=== PATIENT | male | born 1990 | race Caucasian/White ===

== ENCOUNTER 2019-09-07 21:06 | Inpatient (IN) | payer SELFPAY ==
[2019-09-07 21:11] VITALS: BP 129/81; PULSE 99; RESP 16; TEMP 36.7; O2SAT 97; BMI 23.0
--- NOTE | 2019-09-07 21:36 | ED_ITS ---
Entered by Citlali Moe, acting as scribe for Sep 07, 2019 21:06 HPI - Psych General: Chief Complaint: Psychiatric Symptoms Stated Complaint: si Time Seen by Provider: 09/07/19 21:16 Source: patient Mode of arrival: ambulatory Limitations: no limitations History of Present Illness: HPI Narrative: 29 yo m came to the er for SI thoughts. 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 Pt states that he has been having some si thougths. Pt said that he has no reason to live, he has lost all of his family and friends. Pt said that he has been wanting to kill himself for about 6 months but he does not have a plan at this time.cora TAPIA complaint: suicidal ideation Onset (ago): day(s) (today) Duration: constant History of same: Yes Relieving factors: none Exacerbating factors: none Context: significant life stressor Associated psychiatric symptoms: suicidal ideation Associated symptoms: Reports suicidal ideation Treatments prior to arrival: none If self harm: admits thoughts of self harm Details of plan: pt does not have a plan at this time. Review of Systems General: Reports: other (negative unless marked) Const: Denies: fever, chills, body aches or change in appetite Eyes: Denies: blurry vision or eye discomfort ENMT: Denies: throat pain or dental pain Card: Denies: chest pain Resp: Denies: shortness of breath GI: Denies: abdominal pain, nausea, vomiting or diarrhea : Denies: painful urination Musc: Denies: neck pain or back pain Skin/Breast: Denies: rash Neuro: Denies: headache Psych: Reports: suicidal ideation Danial/Lymph: Denies: easy bruising All/Imm: Denies: hives PFSH ED PFSH: Social History Smoking and tobacco status: current every day smoker Physical Exam Const: COMMON NORMALS: no apparent distress, oriented x3 and healthy appearing HENMT: COMMON NORMALS: normocephalic and head/scalp atraumatic HEAD & SCALP: normocephalic and atraumatic Eye: COMMON NORMALS: PERRL and EOMs intact bilaterally PUPIL: Yes PERRL Neck/C-Spine: COMMON NORMALS: full ROM and supple Chest: COMMONS NORMALS: inspection of chest normal and palpation of chest normal Resp: COMMON NORMALS: normal respiratory effort, no retractions, no use of accessory muscles and clear to auscultation bilaterally AUSCULTATION: clear to auscultation bilaterally Cardio: COMMON NORMALS: regular rate, regular rhythm and no murmurs RATE: regular rate RHYTHM: regular rhythm GI: COMMON NORMALS: normal to inspection, nondistended, normoactive bowel sounds, soft to palpation, non-tender and no masses PALPATION: Yes soft Extremity: COMMON NORMALS: normal to inspection and full ROM Neuro: COMMON NORMALS: oriented x3, moves all extremities and no focal motor deficits Psych: COMMON NORMALS: mental status grossly normal and cooperative THOUGHT CONTENT: Yes suicidality Skin: COMMON NORMALS: no rashes or lesions noted and no wounds GENERAL SKIN EXAM: no rashes or lesions noted MDM - Psych MDM Narrative: Medical decision making narrative: Patient presents here with suicidal ideation. Patient is voluntarily wanting to get help. I spoke to psychiatrist and will admit at this time. Patient has been stable while here. Coding Level of Care Code ED Beater Out for Chg Fwd The documentation recorded by the Abhi tobias Stephanie Lyn, accurately reflects the service I personally performed and the decisions made by me, Srinath Peralta MD Sep 07, 2019 21:06
--- NOTE | 2019-09-07 21:53 | PC.NURSE ---
PATIENT STATES HE STARTED HAVING THOUGHTS OF SUICIDE TODAY AND THAT HE HAS A HISTORY OF THE SAME TYPE OF THOUGHTS. PATIENT STATES HE DOES NOT HAVE A PLAN TO HURT HIMSELF. PATIENT STATES HE CAME IN OF HIS OWN FREE WILL AND STATES THAT HIS MOTHER HELPED TALK HIM INTO COMING IN. PATIENT STATES HE WANTS SOME HELP. PATIENT STATES HE HAS NOT DONE ANY METHAMPHETAMINES SINCE THURSDAY.
[2019-09-07 22:33] LABS: Basophils # 0.1 10^3/uL (0.0-0.1); Basophils % 0.6 %; Eosinophils # 0.2 10^3/uL (0.0-0.8); Eosinophils % 2.9 %; Hematocrit 41.4 % (42.0-52.0); Hemoglobin 12.9 g/dL (11.7-16.6); Lymphocytes # 2.8 10^3/uL (0.8-4.8); Lymphocytes % 34.8 %; Mean Corpuscular HGB Conc 31.2 g/dL (30.0-36.0); Mean Corpuscular Hemoglobin 27.7 pg (28.0-34.0); Mean Corpuscular Volume 88.8 fL (80-94); Mean Platelet Volume 9.8 fL (7.4-10.4); Monocytes # 0.6 10^3/uL (0.2-0.9); Monocytes % 6.9 %; Neutrophils # 4.3 10^3/uL (1.8-7.7); Neutrophils % 54.3 %; Nucleated Red Blood Cells % 0 %; Platelet Count 291 10^3/cmm (130-400); Red Blood Count 4.66 10^6/uL (4.1-5.3); Red Cell Distribution Width 12.4 % (12.1-15.1); White Blood Count 7.9 10^3/uL (4.0-10.0)
[2019-09-07 22:43] VITALS: PULSE 86; RESP 18; O2SAT 100
[2019-09-07 22:49] VITALS: BP 122/68; PULSE 87; RESP 18; O2SAT 100
[2019-09-07 22:49] LABS: Alanine Aminotransferase 11 U/L (0-41); Albumin Level 3.9 g/dL (3.5-5.2); Alkaline Phosphatase 68 IU/L (40-130); Anion Gap 10.1 (5-19); Aspartate Amino Transferase 14 U/L (0-40); Blood Urea Nitrogen 9 mg/dL (6-20); Calcium 9.5 mg/dL (8.5-10.5); Carbon Dioxide 33 mmol/L (22-29); Chloride 103 mmol/L (98-107); Globulin 2.8 g/dL (1.3-4.6); Glomerular Filtration Rate 131.5 mL/min (90-130); Glucose 92 mg/dL (65-115); Osmolality Calculated 290 mOsm/kg (285-295); Potassium 4.1 mmol/L (3.5-5.1); Sodium 142 mmol/L (136-145); Total Bilirubin 0.3 mg/dL (0.15-1.2); Total Protein 6.7 g/dL (6.6-8.7)
[2019-09-07 22:50] LABS: Acetaminophen < 5.0 ug/mL (10-30); Alcohol Level < 10 mg/dL (0-10); Salicylate < 0.3 mg/dL (3-10)
[2019-09-07 22:56] LABS: Cocaine Screen Urine Negative (Negative); PCP Screen Urine Negative (Negative); THC Screen Urine Positive (Negative)
[2019-09-07 22:57] LABS: Amphetamines Screen Urine Positive (Negative); Barbiturates Screen Urine Negative (Negative); Benzodiazepines Screen Urine Negative (Negative); Opiate Screen Urine Negative (Negative)
--- NOTE | 2019-09-07 23:15 | PC.NURSE ---
Pt arrived to unit via w/c at 2305. pt in paper scrubs as per protocol.
--- NOTE | 2019-09-07 23:30 | PC.NURSE ---
pt has no scheduled meds at this time.
[2019-09-07 23:34] VITALS: BP 113/75; PULSE 83; RESP 22; TEMP 36.5; O2SAT 98
[2019-09-08 06:00] VITALS: BP 107/68; PULSE 84; RESP 18; TEMP 36.8; O2SAT 95
--- NOTE | 2019-09-08 10:56 | P.HP_ITS ---
Providers/Chief Complaint Admitting Physician: Leeroy Tompkins MD Chief Complaint: si HPI NPU History of Present Illness Chief complaint: I have depression and an anxiety disorder. History of present illness:Jeremy Black is a 29 year old male who presented to the emergency room reporting multiple psychosocial stressors including recent incarceration and homelessness and reporting suicidal ideation. Since his last admission, he was living in [place] and working in [employer]. However, he was picked up by police on outstanding warrants and transported here. He was released three days ago. He is not a reliable informant with regard to symptoms of depression other than chief complaint above. ER Physician note: 29 yo m came to the er for SI thoughts. 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 Pt states that he has been having some si thougths. Pt said that he has no reason to live, he has lost all of his family and friends. Pt said that he has been wanting to kill himself for about 6 months but he does not have a plan at this time. [facility] historyt From admission of Apr 19, 2019 thru Apr 25, 2019 Discharge Diagnoses: Amphetamine abuse disorder Amphetamine intoxication Narcissistic personality disorder Chief Complaint: you Speak with the devil, you better tell him what he wants to hear. Life just sucks. HPI: Jeremy Black is a 29-year-old man who is admitted to the psychiatric unit for the second time in 3 years with a chief problem of methamphetamine abuse. On interview, he is irritable and hostile and unwilling to provide any significant information. He says that he has been using methamphetamine daily. He will not estimate how much he has been using. He will not estimate how long he has been using continuously. When asked about symptoms of depression, he replies that of course I'm depressed. I have nothing. He rambles on and starts talking about not having a or children or anything that would provide him any source of enjoyment. He specifically denied suicidal or homicidal ideation. However he passively admitted that he feels hopeless and overwhelmed and questions whether it is reasonable for him to go on living. He refused to respond when asked about specific symptoms of depression. He denied having auditory or visual hallucinations. However he clearly was not understanding what he was being told in the information part of this interview. Specifically, we discussed the fact that he is currently on a 96 hour involuntary commitment. He became angry over the fact that the 96 hours with actually take 6 days to resolve because weekends do not count. Following the explanation, it was explained to him that if he demonstrated to physician and staff that he was not an imminent risk to himself or others, he demonstrated that was able to effectively plan for events after discharge that would indicate keep him safe and address his issues, that the 96 hour involuntary commitment could be canceled. Less than a minute later, he stated that he did not understand why he should be talking to me since he was going to be here until next week anyway. He didn't faint as if he was nauseous and going to throw up (he did not). He then went back to his room and refused to provide further information. Emergency room note: Chief Complaint: Pt states that he wants to kill himself because no one cares about him. Pt is withdrawn and will not say anything else. Pt wants to come in to get some help.). Social history: homeless; no social support Legal history: In the past year he's been rested for Her in with a motor vehicle and felony possession of a controlled substance. Past medical history: See emergency room notes for full detail Mental Status Exam: The patient is alert interpersonally engaged male appearing approximately his stated age. His head is almost shaved bald. He is muscular and well-developed. There are no tics or tremors. He is interpersonally engaged but gives no eye contact. Attitude is not particularly engaged but not dismissive as in the past. Appearance: hygiene is fair; no gross neurological deficits., gait is unremarkable; AIMS=0 Speech: Speech is of normal rate and rhythm and easily understood. Thought processes: Thought processes are abstract. Judgment is adequate for safety. Associations: intact Psychotic processes: He denied the presence of auditory or visual hallucinations. Judgment: Insight is fair. Problem solving skills are adequate for safety. Orientation: The patient is oriented to person, place time and situation. Memory: no deficits noted in immediate, intermediate, or remote spheres. Attention: The patient is alert and interpersonally engaged. Language: Verbalizations are coherent. Fund of knowledge: Fund of knowledge is adequate. Affect/Mood: Affect is sad with a depressed mood. no suicidal ideation without intent or plan. Affective range flat. Psychosis: no indication of psychosis other than occassional cognitve distortion. Reality testing is intact. Diagnoses: Methamphetamine abuse disorder Treatment plan: Due to the psychiatric conditions and treatment listed in the Assessment and Plan - the patient requires continued hospitalization. Will provide a safe and therapeutic environment for patient.. Will continue inpatient treatment to allow for medication adjustment and monitoring. Will continue q15 min safety checks. This situation's dominant force is his homelessness and lack of social support. His methamphetamine use is also a barrier to better mental health. We agreed to start Paxil 10 mg at bedtime and consider naltrexone for methamphetamine craving if he finds placement in a treatment program. Monitor patient's mood, sleep, appetite, and behavior closely. Encourage patient to participate in individual and group therapeutic sessions on the [place]. Estimated length of stay 5 days The expected benefits and potential side effects of patient's psychiatric medications were discussed with the patient. The patient understands and consents to treatment.CRITERIA FOR DISCHARGE: stable on medications and not an imminent risk to self or others. Meds NPU Home Medications Medication Instructions Recorded Confirmed Type No Known Home Medications 09/07/19 09/07/19 History Allergies Allergy/AdvReac Type Severity Reaction Status Date / Time escitalopram [From Lexapro] Allergy ALGY-Hives Verified 09/07/19 21:23 menthol [From Icy Hot] Allergy ALGY-Hives Verified 09/07/19 21:23 methyl salicylate Allergy ALGY-Hives Verified 09/07/19 21:23 [From Icy Hot] PFSH NPU PFSH: Social History Smoking and tobacco status: current every day smoker Vitals/I&O/Wt Last Vital Signs Temp 98.3 F 09/08/19 06:00 Pulse 84 09/08/19 06:00 Resp 18 09/08/19 06:00 BP 107/68 09/08/19 06:00 Pulse Ox 95 09/08/19 06:00 Weight last 48 hrs Weight 77.111 kg Data NPU : 09/07/19 22:09 09/07/19 22:09 Attestations NPU Medical Necessity Statement*: Pt will remain in the hospital for another 4-5 nights until he can find solutions to his homelessness or placement and efficacy of depressioin treatment. Coding Level of Care Code Acute Pit Supervisor for Opal Lara
[2019-09-08 14:00] VITALS: BP 116/75; PULSE 103; RESP 18; TEMP 36.5; O2SAT 97
[2019-09-08] MEDS: OLANZapine ODT 5 MG TABLET PO (21:10)
[2019-09-08] MEDS: PARoxetine 20 mg Tablet 10 MG PO (21:10)
[2019-09-08] MEDS: doxepin 25 mg Capsule PO (21:11)
[2019-09-08] MEDS: trazodone 50 mg Tablet PO (21:11)
[2019-09-08 21:26] VITALS: BP 116/76; PULSE 83; RESP 23; TEMP 36.6; O2SAT 99
[2019-09-09 06:00] VITALS: BP 106/72; PULSE 69; RESP 18; TEMP 36.7; O2SAT 94
[2019-09-09 13:55] VITALS: BP 106/66; PULSE 83; RESP 18; TEMP 36.8; O2SAT 97
--- NOTE | 2019-09-09 17:46 | P.PN_ITS ---
Vitals/I&O/Wt Last Vital Signs Temp 98.3 F 09/09/19 13:55 Pulse 83 09/09/19 13:55 Resp 18 09/09/19 13:55 BP 106/66 09/09/19 13:55 Pulse Ox 97 09/09/19 13:55 Weight last 48 hrs Weight 77.111 kg Data NPU : 09/07/19 22:09 09/07/19 22:09 A&P Additional A&P Information Subjective: Pt compains that he new meds caused him to have diarrhea all day. Mental Status Exam: The patient is alert interpersonally engaged male appearing approximately his stated age. His head is almost shaved bald. He is muscular and well-developed. There are no tics or tremors. He is interpersonally engaged but gives no eye contact. Attitude is not particularly engaged but not dismissive as in the past. Appearance: hygiene is fair; no gross neurological deficits., gait is unremarkable; AIMS=0 Speech: Speech is of normal rate and rhythm and easily understood. Thought processes: Thought processes are abstract. Judgment is adequate for safety. Associations: intact Psychotic processes: He denied the presence of auditory or visual hallucinations. Judgment: Insight is fair. Problem solving skills are adequate for safety. Orientation: The patient is oriented to person, place time and situation. Memory: no deficits noted in immediate, intermediate, or remote spheres. Attention: The patient is alert and interpersonally engaged. Language: Verbalizations are coherent. Fund of knowledge: Fund of knowledge is adequate. Affect/Mood: Affect is sad with a depressed mood. no suicidal ideation without intent or plan. Affective range flat. Psychosis: no indication of psychosis other than occassional cognitve distor tion. Reality testing is intact. Diagnoses: Methamphetamine abuse disorder Treatment plan: Due to the psychiatric conditions and treatment listed in the Assessment and Plan - the patient requires continued hospitalization. Will provide a safe and therapeutic environment for patient.. Will continue inpatient treatment to allow for medication adjustment and monitoring. Will continue q15 min safety checks. HD#2: This situation's dominant force is his homelessness and lack of social support. His methamphetamine use is also a barrier to better mental health. We agreed to start Paxil 10 mg at bedtime and consider naltrexone for methamphetamine craving if he finds placement in a treatment program. HD#3: replace PAxil with Celexa 20 mg daily Attestations NPU Medical Necessity Statement*: Patient will remain in hospital antoher 4-5 nights for medication toelrance and efficacy Coding Level of Care Code Acute Ornamental Metal Worker Helper for Opal Lara
[2019-09-09] MEDS: trazodone 50 mg Tablet PO (20:54)
[2019-09-09] MEDS: doxepin 25 mg Capsule PO (20:54)
[2019-09-09 22:00] VITALS: BP 104/67; PULSE 75; RESP 16; TEMP 36.8; O2SAT 96
[2019-09-10 06:00] VITALS: BP 109/74; PULSE 63; RESP 17; TEMP 36.6; O2SAT 96
--- NOTE | 2019-09-10 08:49 | PM.NPN ---
Mental Status Exam Cognition: Level of Consciousness: Awake, Alert, Appropriate and Follows Commands Patient Cognition Impaired: No Ability to Follow Directions: Excellent Patient Orientation (long list): Person, Place and Time Comprehension Ability: No Impairment Hallucination Type: None Thought Process: Appropriate Affect: Affect Description: Appropriate and Calm Depressive Symptoms: Hopelessness, Loss of Energy and Recurrent Thoughts of or Suicide Behavior: Patient Behavior: Appropriate and Cooperative Speech Pattern: Appropriate and Clear Vitals/I&O/Wt Last Vital Signs Temp 97.8 F 09/10/19 06:00 Pulse 63 09/10/19 06:00 Resp 17 09/10/19 06:00 BP 109/74 09/10/19 06:00 Pulse Ox 96 09/10/19 06:00 Data NPU : 09/07/19 22:09 09/07/19 22:09 A&P Additional A&P Information Subjective: Pt is free of gastrointestinal problems after stoping Paxil. Sleep was good. No changes requested. Awaiting placement options. Mental Status Exam: The patient is encountered alying bed early in day. He is alert interpersonally engaged male appearing approximately his stated age. Appearance: hygiene is fair; no gross neurological deficits., gait is unremarkable; AIMS=0 Speech: Speech is of normal rate and rhythm and easily understood. Thought processes: Thought processes are abstract. Judgment is adequate for safety. Associations: intact Psychotic processes: He denied the presence of auditory or visual hallucinations. Judgment: Insight is fair. Problem solving skills are adequate for safety. Orientation: The patient is oriented to person, place time and situation. Memory: no deficits noted in immediate, intermediate, or remote spheres. Attention: The patient is alert and interpersonally engaged. Language: Verbalizations are coherent. Fund of knowledge: Fund of knowledge is adequate. Affect/Mood: Affect is sad with a depressed mood. no suicidal ideation without intent or plan. Affective range flat. Psychosis: no indication of psychosis other than occassional cognitve distortion. Reality testing is intact. Diagnoses: Methamphetamine abuse disorder Treatment plan: Due to the psychiatric conditions and treatment listed in the Assessment and Plan - the patient requires continued hospitalization. Will provide a safe and therapeutic environment for patient.. Will continue inpatient treatment to allow for medication adjustment and monitoring. Will continue q15 min safety checks. HD#2: This situation's dominant force is his homelessness and lack of social support. His methamphetamine use is also a barrier to better mental health. We agreed to start Paxil 10 mg at bedtime and consider naltrexone for methamphetamine craving if he finds placement in a treatment program. HD#3:replace PAxil with Celexa 20 mg daily HD#4: continue Celexa 20 mg daily day #2 and doxepin 50 mg at bedtime Attestations NPU Medical Necessity Statement*: Pt to remain in hospital another 3-4 nights for assessment of medication tolerance and efficacy. Coding Level of Care Code Acute Neurosurgical Nurse Practitioner for Opal Lara
[2019-09-10] MEDS: citalopram 20 mg Tablet PO (09:00)
[2019-09-10 14:00] VITALS: BP 123/89; PULSE 18; RESP 17
[2019-09-10] MEDS: doxepin 25 mg Capsule PO (20:31)
[2019-09-10] MEDS: OLANZapine ODT 5 MG TABLET PO (21:34)
[2019-09-10] MEDS: hyDROXYzine 25 mg Capsule PO (21:35)
[2019-09-10 22:00] VITALS: BP 117/80; PULSE 88; RESP 17; TEMP 36.4; O2SAT 97
--- NOTE | 2019-09-10 23:28 | PC.NURSE ---
pt came to desk early in shift and very angry verbalizing that he did not get all of his meds. Had another RN verify order. Pt remained at desk and argued. After multiple attempts to explain to pt he continued to argue. Dr. Tompkins notified after pt said he wanted to leave AMA. When took form to pt he decided he did not want to leave. Medicated with Vistaril 25mgs po and Zyprxa Zydid 5 ngs odt. Pt returned to his room and fell asleep shortly after. Respirations even and unlabored.
[2019-09-11 06:00] VITALS: BP 108/67; PULSE 77; RESP 16; TEMP 36.7; O2SAT 96
[2019-09-11] MEDS: citalopram 20 mg Tablet PO (08:39)
[2019-09-11 13:39] VITALS: BP 109/74; PULSE 102; RESP 17
--- NOTE | 2019-09-11 14:18 | PM.NPN ---
Subjective NPU Subjective: Interval history: Patient is still disgruntled and ill-tempered. He seems not to recognize that it is not everyone else's fault that he is in the situation in which he finds himself. Medications: Reviewed: Yes Medication Review Details: Current Medications Acetaminophen (Tylenol) 650 mg PO Q4H PRN PRN Reason: MILD PAIN Benztropine Mesylate (Cogentin) 1 mg PO BID PRN PRN Reason: Mild Extrapyramidal symptoms Citalopram Hydrobromide (Celexa) 20 mg PO DAILY [facility] Last Admin: 09/11/19 08:39 Dose: 20 mg Documented by: Diphenhydramine HCl (Benadryl) 50 mg IM ONCE PRN PRN Reason: Severe Extrapyramidal Symptoms Diphenhydramine HCl (Benadryl) 50 mg IM Q4H PRN PRN Reason: Severe Aggression Haloperidol (Haldol) 5 mg PO Q4H PRN PRN Reason: AGITATION Haloperidol Lactate (Haldol Inj) 5 mg IM Q4H PRN PRN Reason: Severe Aggression Hydroxyzine Pamoate (Vistaril) 25 mg PO Q4H PRN PRN Reason: ANXIETY Last Admin: 09/10/19 21:35 Dose: 25 mg Documented by: Loperamide HCl (Imodium Capsule) 2 mg PO Q6H PRN PRN Reason: DIARRHEA Lorazepam (Ativan) 2 mg IM Q4H PRN PRN Reason: Severe Aggression Nicotine (Nicoderm 21 Mg Patch) 1 patch TRANSDERMA DAILY PRN PRN Reason: NICOTINE WITHDRAWAL Olanzapine (Zyprexa Zydis) 5 mg PO Q4H PRN PRN Reason: Agitation/Psychosis Last Admin: 09/10/19 21:34 Dose: 5 mg Documented by: Ondansetron HCl (Zofran) 4 mg PO Q6H PRN PRN Reason: NAUSEA AND VOMITING Trazodone HCl (Desyrel) 100 mg PO BEDTIME [facility] Mental Status Exam MSE Comments: This is a thin, 29-year-old male who is operating in a why is this happening to me? mode, thereby giving himself no power (and no responsibility) to rectify his condition. Mood is irritable. Affect is flat. Attitude is oppositional. Thought processes are integrated and free of any racing, blocking or looseness of association. No evidence of psychosis, such as but not limited to hallucination, delusion or ideas of reference. Speech is of normal rate and volume, without dysarthria, aprosody or pressure. Cognitive function appears to be adequate, at least with respect to orientation, memory and capacity to reason. Insight and judgment are rather thin. Patient waffles on the issue of suicidal ideation but denies homicidal ideation. Vitals/I&O/Wt Last Vital Signs Temp 98.1 F 09/11/19 06:00 Pulse 102 H 09/11/19 13:39 Resp 17 09/11/19 13:39 BP 109/74 09/11/19 13:39 Pulse Ox 96 09/11/19 06:00 Weight last 48 hrs Weight 166 lb 2 oz Data NPU : 09/07/19 22:09 09/07/19 22:09 A&P Additional A&P Information Diagnoses: Methamphetamine abuse disorder Treatment plan: Due to the psychiatric conditions and treatment listed in the Assessment and Plan - the patient requires continued hospitalization. Will provide a safe and therapeutic environment for patient.. Will continue inpatient treatment to allow for medication adjustment and monitoring. Will continue q15 min safety checks. HD#2: This situation's dominant force is his homelessness and lack of social support. His methamphetamine use is also a barrier to better mental health. HD#3:replace PAxil with Celexa 20 mg daily HD#4: continue Celexa 20 mg daily day #2 and doxepin 50 mg at bedtime Attestations NPU Medical Necessity Statement*: I anticipate 3-4 midnights Time Spent in Patient Care: Greater than 35 minutes (>than 50% of time spent in counselling and/or direct pt care on unit). Coding Level of Care Code Acute Poster for Opal Lara
[2019-09-11] MEDS: trazodone 100 mg Tablet PO (21:11)
[2019-09-11] MEDS: hyDROXYzine 25 mg Capsule PO (21:11)
[2019-09-11 21:18] VITALS: BP 101/63; PULSE 82; RESP 18; TEMP 36.7; O2SAT 98
[2019-09-12 06:00] VITALS: BP 106/70; PULSE 69; RESP 17; TEMP 36.7; O2SAT 93
[2019-09-12] MEDS: citalopram 20 mg Tablet PO (08:47)
--- NOTE | 2019-09-12 13:38 | P.DS_ITS ---
Diagnoses at Discharge Discharge Diagnosis (1) Alcohol abuse with alcohol-induced mood disorder: Status: Acute Problem details: to the emergency room reporting multiple psychosocial stressors including recent incarceration and homelessness and reporting suicidal ideation. Since his last admission, he was living in [place] and working in [employer]. However, he was picked up by police on outstanding warrants and transported here. He was released three days ago. He is not a reliable informant with regard to symptoms of depression other than chief complaint above. Reason for Visit Reason for Visit: Reason For Visit: Jeremy Black is a 29 year old male who pres Brief History: Patient presented to the emergency room reporting multiple psychosocial stressors including recent incarceration and homelessness and reporting suicidal ideation. Since his last admission, he was living in [place] and working in [employer]. However, he was picked up by police on outstanding warrants and transported here. He was released three days ago. He is not a reliable informant with regard to symptoms of depression other than chief complaint above. Hospital Course Hospital Course Patient initially made very little headway from an insight perspective. As with most personality disorders, he initially learned nothing from his mistakes. And the next few days he began to see the relationship between his alcohol abuse and his misfortune. His mood improved and he was able to hold himself safe. In the meantime discharge planners arranged Transfer to [facility] rehab program and he is deemed competent, per my assessment today, to assume the increased risk of a less-restrictive millieu, such as Transfer to [facility]. Involuntary Hold Information 96 Hour Hold: 96 Hour Involuntary Admission: No 21 Day Hold: 21 Day Involuntary Hold: No Mental Status Exam MSE Comments: This is a thin, 29-year-old male who has relinquished the Why is this happening to me? mode, thereby giving himself power (and the responsibility) to rectify his condition, which she has chosen to do. He [facility] decided [facility] and thereby pursue recovery. Mood is anxious. Affect is tense. Thought processes are integrated and free of any racing, blocking or looseness of association. No evidence of psychosis, such as but not limited to hallucination, delusion or ideas of reference. Speech is of normal rate and volume, without dysarthria, aprosody or pressure. Cognitive function appears to be adequate, at least with respect to orientation, memory and capacity to reason. Insight and judgment are improved. Patient now denies suicidal ideation or homicidal ideation, plan or intent. Discharge Data Vitals: Last Vital Signs Temp 98.0 F 09/12/19 06:00 Pulse 69 09/12/19 06:00 Resp 17 09/12/19 06:00 BP 106/70 09/12/19 06:00 Pulse Ox 93 09/12/19 06:00 Discharge Plan Discharge Patient Disposition: Home, Self-Care Condition: Stable Prescriptions: New citalopram 20 mg Tablet 20 mg PO DAILY Qty: 60 RF: 1 Discharge Orders: Discharge Order (Routine); Ordered 09/12/19 Ordered By: Thomas Guzman Discharge Diet: Usual diet Discharge Activity: Resume usual activity Patient Instructions: Depression (DC), Generalized Anxiety Disorder (DC) Activity Restrictions/Additional Instructions: Go to [facility] at [facility] in [place] ([phone]) upon discharge. Staff from [facility] to provide a ride. Make sure you have a 60 day supply of your medications before you leave [facility]. Do follow-up at [facility] ([facility]) as soon as you can so that you can get medications continued. [address] [facility] [place] [address] walk-in hrs: Thursday through Thursday 7:30 a.m. -2:30 p.m. go some time within the walk-in hours and request initial intake. Discharge Attestations [facility] Time Spent in Discharge Care*: greater than 30 min Specific Discharge Activities: Specific discharge activities: educating patient, discussing with complex case manager/social workers/dc planners, documenting/other paperwork and evaluating patient/reviewing data Status at Discharge: Cognitive status at discharge: cognitively intact , Behavioral status at discharge: cooperative , Functional status at discharge: independent ambulation Overall status at discharge: patient is progressing back to baseline Coding Level of Care Code Acute Board Attendant for Opal Lara Diagnoses Alcohol abuse with alcohol-induced mood disorder F10.14
[2019-09-12 13:45] VITALS: BP 106/70; PULSE 69; RESP 17; TEMP 36.7; O2SAT 93
== END 2019-09-12 15:08 | disposition home or self-care (01) | DRG 897 ==
LOC: ER 21:24 → NP 22:33
PROVIDERS: Admitting Provider Psychiatry & Neurology Psychiatry; Emergency Provider Emergency Medicine; Family Provider Family Medicine; Visit Provider Psychiatry & Neurology Psychiatry
DX: F10.14 Alcohol abuse with alcohol-induced mood disorder (principal); R45.851 Suicidal ideations; F32.9 Major depressive disorder, single episode, unspecified; F41.9 Anxiety disorder, unspecified; F15.10 Other stimulant abuse, uncomplicated; F17.210 Nicotine dependence, cigarettes, uncomplicated; Z59.0 Homelessness; Z79.84 Long term (current) use of oral hypoglycemic drugs
CPT/HCPCS: 12345; 36415; 80053; 80306; 80307; 85025; 99284

== ENCOUNTER 2020-01-17 16:58 | Inpatient (IN) | payer SELFPAY ==
[2020-01-17 17:03] VITALS: BP 118/81; PULSE 81; RESP 12; TEMP 37.2; O2SAT 99; BMI 27.1
--- NOTE | 2020-01-17 17:17 | PC.NURSE ---
Pt talking to [facility] at this time and pt states he has not filled any of his prescriptions in 2 months so he has not been taking any of them.
--- NOTE | 2020-01-17 17:26 | ED_ITS ---
HPI - Psych General: Chief Complaint: Psychiatric Symptoms Stated Complaint: mhe Time Seen by Provider: 01/17/20 17:25 Source: patient Mode of arrival: ambulatory Limitations: no limitations History of Present Illness: HPI Narrative: Patient is a 29-year-old male who presents to ED today with a complaint of suicidal ideations. Patient tells me he recently met a girl and states he spent a lot of money to move to [place] to move in with her but states when he got there he ended up being essentially just a dildo to her. He states now he feels embarrassed. Patient tells me 3 to 4 days ago he tried to commit suicide by hanging. He states he has a plan now to overdose on medications. He is having some mild homicidal thoughts towards her. Patient admits to methamphetamine use 3 to 4 days ago. He is currently in the [facility] outpatient program. Patient reports previous psychiatric diagnoses of severe anxiety and depression. He is supposed to be taking several medications however has not. Reports previous hospitalizations at [facility]. MD complaint: suicidal ideation and feels depressed Onset (ago): day(s) Duration: constant History of same: Yes Relieving factors: none Context: recent drug abuse, not taking psychiatric medications and significant life stressor Associated psychiatric symptoms: depression, suicidal ideation and homicidal ideation Associated symptoms: Reports depression, homicidal ideation and suicidal ideation; Deny auditory hallucinations or visual hallucinations If self harm: admits thoughts of self harm, has plan and has acted on plan Review of Systems Const: Denies: fever(s) or chills Card: Denies: chest pain, palpitations, lightheadedness or syncope Resp: Denies: dyspnea GI: Denies: abdominal pain, nausea, vomiting or diarrhea Skin/Breast: Denies: rash Neuro: Denies: headache(s) Psych: Reports: anxiety, depression, hopelessness, irritability, suicidal ideation and homicidal ideation; Denies: visual hallucinations or auditory hallucinations [facility] ED PFSH: Medical History (Updated 01/17/20 @ 19:36 by PAUL Lanier) Nicotine dependence with current use TBI (traumatic brain injury) Social History Smoking and tobacco status: current every day smoker Current gender identity: Male Physical Exam Const: COMMON NORMALS: no acute distress, patient oriented x3, alert and well nourished GENERAL APPEARANCE: cooperative and well kempt ORIENTATION/CONSCIOUSNESS: Yes oriented to person, Yes oriented to place and Yes oriented to time Resp: COMMON NORMALS: normal respiratory effort and clear to auscultation bilaterally AUSCULTATION: clear to auscultation bilaterally Cardio: COMMON NORMALS: regular rate and regular rhythm RATE: regular rate RHYTHM: regular rhythm Neuro: COMMON NORMALS: patient oriented x3 SENSORIUM/ORIENTATION: Yes alert, Yes oriented to person, Yes oriented to place and Yes oriented to time Psych: COMMON NORMALS: mental status grossly normal, Normal thought process present, cooperative, normal affect, speech normal, activity/motor behavior normal and denies hallucinations APPEARANCE: Yes grossly normal and Yes well kempt ATTITUDE: Yes calm ACTIVITY/MOTOR BEHAVIOR: Yes appropriate eye contact and No psychomotor agitation SPEECH: Yes normal speech MOOD & AFFECT: Yes euthymic mood THOUGHT PROCESS: Normal thought process present THOUGHT CONTENT: Yes Normal thought content present ATTENTION/CONCENTRATION: Yes attention grossly intact and Yes concentration grossly intact MEMORY/COGNITION: Yes memory grossly intact and Yes cognition grossly intact INSIGHT: Good insight present (Psych) JUDGEMENT: Fair judgement present (Psych) Skin: COMMON NORMALS: no rashes or lesions noted GENERAL SKIN EXAM: no rashes or lesions noted MDM - Psych MDM Narrative: Medical decision making narrative: pt is voluntary with affidavit Lab Data: Labs: Lab Results 01/17/20 01/17/20 01/17/20 Range/Units 17:17 17:17 18:40 WBC 6.5 (4.0-10.0) 10^3/ uL RBC 4.73 (4.1-5.3) 10^6/u L Hgb 12.9 (11.7-16.6) g/dL Hct 41.0 L (42.0-52.0) % MCV 86.7 (80-94) fL MCH 27.3 L (28.0-34.0) pg MCHC 31.5 (30.0-36.0) g/dL RDW 12.7 (12.1-15.1) % Plt Count 233 (130-400) 10^3/c mm MPV 9.8 (7.4-10.4) fL Neut % (Auto) 63.0 % Lymph % (Auto) 28.2 % [place] % (Auto) 6.1 % Eos % (Auto) 2.1 % Baso % (Auto) 0.3 % Neut # (Auto) 4.11 (1.8-7.7) 10^3/u L Lymph # (Auto) 1.8 (0.8-4.8) 10^3/u L [place] # (Auto) 0.4 (0.2-0.9) 10^3/u L Eos # (Auto) 0.1 (0.0-0.8) 10^3/u L Baso # (Auto) 0.0 (0.0-0.1) 10^3/u L Nucleated RBC % (a uto) 0 % Nucleated RBCs # 0.0 /100WBC Sodium (136-145) mmol/L Potassium (3.5-5.1) mmol/L Chloride (98-107) mmol/L Carbon Dioxide (22-29) mmol/L Anion Gap (5-19) BUN (6-20) mg/dL Creatinine (0.7-1.2) mg/dL GFR Calculation (90-130) mL/min Glucose (65-115) mg/dL Calculated Osmolal ity (285-295) mOsm/k g Calcium (8.5-10.5) mg/dL Total Bilirubin (0.15-1.2) mg/dL AST (0-40) U/L ALT (0-41) U/L Alkaline Phosphata se (40-130) IU/L Total Protein (6.6-8.7) g/dL Albumin (3.5-5.2) g/dL Globulin (1.3-4.6) g/dL Urine Color Yellow (Yellow) Urine Appearance Clear (CLEAR) Urine pH 6 (5-7) Ur Specific Gravit y 1.015 (1.005-1.030) Urine Protein Neg (Negative) Urine Glucose (UA) Norm (Normal) Urine Ketones Negative (Negative) Urine Blood Neg (Negative) Urine Nitrate Negative (Negative) Urine Bilirubin Neg (NEGATIVE) Urine Urobilinogen Neg (Negative) mg/dL Ur Leukocyte Mady ase Negative (Negative) Salicylates (3-10) mg/dL Urine Opiates Scre en Negative (Negative) ng/mL Acetaminophen (10-30) ug/mL Ur Barbiturates Sc reen Negative (Negative) ng/mL Ur Phencyclidine S crn Negative (Negative) ng/mL Ur Amphetamines Sc reen Positive H (Negative) ng/mL U Benzodiazepines Scrn Negative (Negative) ng/mL Urine Cocaine Scre en Negative (Negative) ng/mL U Marijuana (THC) Screen Negative (Negative) ng/mL Ethyl Alcohol (0-10) mg/dL 01/17/20 Range/Units 18:40 WBC (4.0-10.0) 10^3/ uL RBC (4.1-5.3) 10^6/u L Hgb (11.7-16.6) g/dL Hct (42.0-52.0) % MCV (80-94) fL MCH (28.0-34.0) pg MCHC (30.0-36.0) g/dL RDW (12.1-15.1) % Plt Count (130-400) 10^3/c mm MPV (7.4-10.4) fL Neut % (Auto) % Lymph % (Auto) % [place] % (Auto) % Eos % (Auto) % Baso % (Auto) % Neut # (Auto) (1.8-7.7) 10^3/u L Lymph # (Auto) (0.8-4.8) 10^3/u L [place] # (Auto) (0.2-0.9) 10^3/u L Eos # (Auto) (0.0-0.8) 10^3/u L Baso # (Auto) (0.0-0.1) 10^3/u L Nucleated RBC % (a uto) % Nucleated RBCs # /100WBC Sodium 141 (136-145) mmol/L Potassium 3.5 (3.5-5.1) mmol/L Chloride 107 (98-107) mmol/L Carbon Dioxide 24 (22-29) mmol/L Anion Gap 13.5 (5-19) BUN 6 (6-20) mg/dL Creatinine 0.6 L (0.7-1.2) mg/dL GFR Calculation 157.1 H (90-130) mL/min Glucose 113 (65-115) mg/dL Calculated Osmolal ity 289 (285-295) mOsm/k g Calcium 9.3 (8.5-10.5) mg/dL Total Bilirubin 0.6 (0.15-1.2) mg/dL AST 11 (0-40) U/L ALT 7 (0-41) U/L Alkaline Phosphata se 45 (40-130) IU/L Total Protein 6.1 L (6.6-8.7) g/dL Albumin 4.2 (3.5-5.2) g/dL Globulin 1.9 (1.3-4.6) g/dL Urine Color (Yellow) Urine Appearance (CLEAR) Urine pH (5-7) Ur Specific Gravit y (1.005-1.030) Urine Protein (Negative) Urine Glucose (UA) (Normal) Urine Ketones (Negative) Urine Blood (Negative) Urine Nitrate (Negative) Urine Bilirubin (NEGATIVE) Urine Urobilinogen (Negative) mg/dL Ur Leukocyte Mady ase (Negative) Salicylates < 0.3 L (3-10) mg/dL Urine Opiates Scre en (Negative) ng/mL Acetaminophen < 5.0 L (10-30) ug/mL Ur Barbiturates Sc reen (Negative) ng/mL Ur Phencyclidine S crn (Negative) ng/mL Ur Amphetamines Sc reen (Negative) ng/mL U Benzodiazepines Scrn (Negative) ng/mL Urine Cocaine Scre en (Negative) ng/mL U Marijuana (THC) Screen (Negative) ng/mL Ethyl Alcohol < 10 (0-10) mg/dL Discharge Plan Discharge Patient Disposition: Admitted As Inpatient Clinical Impression: Suicidal ideation, Homicidal ideation Condition: Stable Prescriptions: No Action prazosin 2 mg capsule 2 mg PO .at bedtime RF: 0 citalopram 20 mg tablet 30 mg PO DAILY Qty: 30 RF: 1 naltrexone 50 mg tablet 50 mg PO DAILY RF: 0 mirtazapine [Remeron] 15 mg tablet 15 mg PO DAILY RF: 0 Referrals: Ac Garcia Jr, MD [Primary Care Provider] - Coding Level of Care Code ED Vocational Education Professional for Chg Fwd Exam Detailed
[2020-01-17 17:48] LABS: Add Urine Microscopic? NO
[2020-01-17 17:53] LABS: Urine Color Yellow (Yellow)
[2020-01-17 17:56] LABS: Bilirubin Urine Neg (NEGATIVE); Blood Urine Neg (Negative); Glucose Urine UA Norm (Normal); Ketones Urine Negative (Negative); Leukocyte Esterase Urine Negative (Negative); Nitrate Urine Negative (Negative); Protein Urine Neg (Negative); Specific Gravity, Urine 1.015 (1.005-1.030); Urine Appearance Clear (CLEAR); Urobilinogen Urine Neg (Negative); pH Urine 6 (5-7)
[2020-01-17 17:59] LABS: Amphetamines Screen Urine Positive (Negative); Barbiturates Screen Urine Negative (Negative); Benzodiazepines Screen Urine Negative (Negative); Cocaine Screen Urine Negative (Negative); Opiate Screen Urine Negative (Negative); PCP Screen Urine Negative (Negative); THC Screen Urine Negative (Negative)
[2020-01-17 18:57] LABS: Basophils % 0.3 %; Eosinophils # 0.1 10^3/uL (0.0-0.8); Eosinophils % 2.1 %; Hemoglobin 12.9 g/dL (11.7-16.6); Lymphocytes # 1.8 10^3/uL (0.8-4.8); Lymphocytes % 28.2 %; Mean Corpuscular HGB Conc 31.5 g/dL (30.0-36.0); Mean Corpuscular Hemoglobin 27.3 pg (28.0-34.0); Mean Corpuscular Volume 86.7 fL (80-94); Mean Platelet Volume 9.8 fL (7.4-10.4); Monocytes # 0.4 10^3/uL (0.2-0.9); Monocytes % 6.1 %; Neutrophils # 4.11 10^3/uL (1.8-7.7); Nucleated Red Blood Cells % 0 %; Platelet Count 233 10^3/cmm (130-400); Red Blood Count 4.73 10^6/uL (4.1-5.3); Red Cell Distribution Width 12.7 % (12.1-15.1); White Blood Count 6.5 10^3/uL (4.0-10.0)
[2020-01-17 19:12] LABS: Alanine Aminotransferase 7 U/L (0-41); Albumin Level 4.2 g/dL (3.5-5.2); Alkaline Phosphatase 45 IU/L (40-130); Anion Gap 13.5 (5-19); Aspartate Amino Transferase 11 U/L (0-40); Blood Urea Nitrogen 6 mg/dL (6-20); Calcium 9.3 mg/dL (8.5-10.5); Carbon Dioxide 24 mmol/L (22-29); Chloride 107 mmol/L (98-107); Creatinine Clr Calc Pharmacy 209.0358; Globulin 1.9 g/dL (1.3-4.6); Glomerular Filtration Rate 157.1 mL/min (90-130); Glucose 113 mg/dL (65-115); Osmolality Calculated 289 mOsm/kg (285-295); Potassium 3.5 mmol/L (3.5-5.1); Sodium 141 mmol/L (136-145); Total Bilirubin 0.6 mg/dL (0.15-1.2); Total Protein 6.1 g/dL (6.6-8.7)
[2020-01-17 19:29] LABS: Acetaminophen < 5.0 ug/mL (10-30); Alcohol Level < 10 mg/dL (0-10); Salicylate < 0.3 mg/dL (3-10)
[2020-01-17 19:45] VITALS: BP 102/64; PULSE 76; RESP 16; TEMP 36.4; O2SAT 95
[2020-01-17 20:10] VITALS: BP 112/72; PULSE 98; RESP 16; TEMP 36.8; O2SAT 94
--- NOTE | 2020-01-17 20:41 | PC.NURSE ---
[facility]. Does not have dentures.
[2020-01-17 21:07] VITALS: BP 112/72; PULSE 98; RESP 17; TEMP 36.8; O2SAT 94
[2020-01-17] MEDS: trazodone 50 mg Tablet PO (21:25)
[2020-01-17] MEDS: hyDROXYzine 25 mg Capsule 50 MG PO (21:25)
[2020-01-17] MEDS: prazosin 1 mg Capsule 2 MG PO (21:53)
[2020-01-18 06:00] VITALS: BP 108/70; PULSE 67; RESP 13; TEMP 36.7; O2SAT 92
[2020-01-18] MEDS: citalopram 20 mg Tablet 30 MG PO (08:36)
[2020-01-18] MEDS: naltrexone hcl 50 mg Tablet PO (08:36)
[2020-01-18] MEDS: mirtazapine 15 mg Tablet PO (08:36)
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
[2020-01-18 14:00] VITALS: BP 102/64; PULSE 79; RESP 18; TEMP 36.9; O2SAT 95
[2020-01-18 20:26] VITALS: BP 109/72; PULSE 57; RESP 14; TEMP 36.5; O2SAT 95
[2020-01-18] MEDS: trazodone 50 mg Tablet PO (21:42)
[2020-01-18] MEDS: prazosin 1 mg Capsule 2 MG PO (21:42)
[2020-01-18] MEDS: hyDROXYzine 25 mg Capsule 50 MG PO (21:42)
--- NOTE | 2020-01-18 23:13 | PC.NURSE ---
pt given scheduled minipress and PRN vistaril and Trazodone per request.
[2020-01-19 06:00] VITALS: BP 114/75; PULSE 67; RESP 13; TEMP 36.8; O2SAT 96
[2020-01-19] MEDS: citalopram 20 mg Tablet 30 MG PO (08:12)
[2020-01-19] MEDS: naltrexone hcl 50 mg Tablet PO (08:12)
[2020-01-19] MEDS: mirtazapine 15 mg Tablet PO (08:12)
--- NOTE | 2020-01-19 12:30 | PC.RESP ---
SMOKING CESSATION INFORMATION SENT TO PATIENT.
[2020-01-19 14:00] VITALS: BP 117/70; PULSE 69; RESP 20; TEMP 36.7; O2SAT 95
--- NOTE | 2020-01-19 14:02 | PM.NPN ---
Subjective NPU Subjective: Interval history: Jeremy presents today reporting that he is mad at the staff because they did not bring him juice. We discussed the fact that other than water and milk, juice is not always there, but if they have juice they certainly would let him have it. He complained that the water was horrible, the [place] water, and this is the worst of [place] water, and that he does not really like milk. I told him that normally we have the machine, on the unit, for people that want something with flavor outside of pop. I assured him that if it is empty that I would get to the bottom of why it was not staying full. He talked again about going back to [facility], and we discussed the fact that it had become our knowledge that they were talking to him about going to inpatient. He reports it was his idea to talk about going to inpatient and they had assured him that if he came over here and worked on issues, that he would have a place to come back to. I explained to him that I had not personally spoken to anyone over there and I am only going from conversations other members of the treatment team have had. We both agree it would be nice if the three of us could have a conversation so that he can know that we are not jerking him around, and we are all clear of what expectations are. Otherwise, he reports that he is eating okay and sleeping okay, and denied other significant issues. Mental Status Exam MSE Comments: This is a slender, white male, with limited dress, grooming, and eye contact. Absent with no teeth with clear atrophy from having the teeth gone for some time. No abnormal movements. Semi-cooperative with exam in less distress. Speech was increased rate, normal volume. Mood described as ok; affect quite irritable. Thought process, organized. Thought content: patient denied any suicidal or homicidal ideation, there were no delusions reported or noted, patient denied any auditory or visual hallucinations. Attention, concentration, and memory appear intact but were not formally tested. He is alert and oriented times three. Insight and judgment are limited. Impulse control limited. Vitals/I&O/Wt Last Vital Signs Temp 97.9 F 01/19/20 22:00 Pulse 121 H 01/19/20 22:00 Resp 19 H 01/19/20 22:00 BP 126/82 01/19/20 22:00 Pulse Ox 95 01/19/20 22:00 Data NPU : 01/17/20 18:40 01/17/20 18:40 A&P Additional A&P Information (1) Suicidal ideation: (2) Homicidal ideation: (3) Anxiety: (4) Insomnia: (5) Amphetamine addiction: (6) Mood disorder: (7) Alcohol abuse with alcohol-induced mood disorder: This is a 29 year old, white male, with methamphetamine use disorder, severe, post-traumatic stress disorder, antisocial personality disorder, depressive disorder, unspecified, anxiety disorder, unspecified, who presents reporting that he just needs to be checked out so he can return to [facility]. Continue current medication. Consider increase in prazosin and celexa Encourage individual, group, and milieu therapy. Continue q-15 minute checks for safety. Recommend sober living treatment at the highest level of care, to which the patient is willing to commit. Involuntary Hold Information 96 Hour Hold: 96 Hour Involuntary Admission: No 21 Day Hold: 21 Day Involuntary Hold: No Attestations NPU Medical Necessity Statement*: Inpatient hospitalization is medically necessary, and the clinically appropriate intervention at this time. We will monitor medication and make adjustments as indicated. Likely length of stay two to four days. Coding Level of Care Code Acute Recreation Counselor for Opal Lara
[2020-01-19] MEDS: trazodone 50 mg Tablet PO (21:21)
[2020-01-19] MEDS: hyDROXYzine 25 mg Capsule 50 MG PO (21:21)
[2020-01-19] MEDS: prazosin 1 mg Capsule 2 MG PO (21:21)
[2020-01-19 22:00] VITALS: BP 126/82; PULSE 121; RESP 19; TEMP 36.6; O2SAT 95
--- NOTE | 2020-01-20 00:32 | PC.NURSE ---
PRN VISTARIL & TRAZODONE PT REQUESTING SLEEP AID AND ANXIETY MEDICATION. ADMINISTERED TRAZODONE 50 MG PO & VISTARIL 50 MG PO. WILL MONITOR FOR MEDICATION EFFECTIVENESS.
[2020-01-20 06:00] VITALS: BP 112/70; PULSE 62; RESP 16; TEMP 36.8; O2SAT 94
[2020-01-20] MEDS: citalopram 20 mg Tablet 30 MG PO (07:58)
[2020-01-20] MEDS: naltrexone hcl 50 mg Tablet PO (07:58)
[2020-01-20] MEDS: mirtazapine 15 mg Tablet PO (07:58)
[2020-01-20 14:00] VITALS: BP 121/81; PULSE 80; RESP 20; TEMP 36.6; O2SAT 96
--- NOTE | 2020-01-20 16:04 | P.PN_ITS ---
Subjective NPU Subjective: Interval history: Jeremy presented today, seeming to be a little less edgy. I was not sure, at that point, if the [employer] people had come, but we certainly had them in and made sure that they were aware that they were falling short in their refilling promises. Otherwise, he reported that he wanted to go back, mostly because of some of the acuity on the unit. We had a long discussion about the fact that the purpose of him being here is for him to work through some of this irritability and make sure that we have something on board that helps him manage that. He reports the slight increase in his Celexa has been helpful but, otherwise, he reports that he is feeling better. We made a concerted effort to identify when they would be able to take him back and making sure that he still had a place at [facility], and also exploring the possibilities of inpatient hospitalization, which is not what he wants right now; he wants a chance to redeem himself. Also, we discussed the possibility of increasing his Prazosin, and he understood and agreed to proceed as is do cumented in this note. He reports that he is eating and sleeping fine. Mental Status Exam MSE Comments: This is a slender, white male, with limited dress, grooming, and eye contact. Absent with no teeth with clear atrophy from having the teeth gone for some time. No abnormal movements. More cooperative with exam in less distress. Speech was normal rate and volume. Mood described as I'm good and want to go back to [facility]; affect less irritable. Thought process, organized. Thought content: patient denied any suicidal or homicidal ideation, there were no delusions reported or noted, patient denied any auditory or visual hallucinations. Attention, concentration, and memory appear intact but were not formally tested. He is alert and oriented times three. Insight and judgment are limited, but improving. Impulse control limited. Vitals/I&O/Wt Last Vital Signs Temp 99.2 F 01/20/20 21:49 Pulse 68 01/20/20 21:49 Resp 18 01/20/20 21:49 BP 114/64 01/20/20 21:49 Pulse Ox 95 01/20/20 21:49 01/20/20 01/20/20 01/21/20 14:59 22:59 06:59 Intake Total 240 / 240 Balance 240 / 240 Data NPU : 01/17/20 18:40 01/17/20 18:40 A&P Additional A&P Information (1) Suicidal ideation: (2) Homicidal ideation: (3) Anxiety: (4) Insomnia: (5) Amphetamine addiction: (6) Mood disorder: (7) Alcohol abuse with alcohol-induced mood disorder: This is a 29 year old, white male, with methamphetamine use disorder, severe, post-traumatic stress disorder, antisocial personality disorder, depressive disorder, unspecified, anxiety disorder, unspecified, who presents reporting that he feels ready to return to [facility]. Continue current medication. Consider increase in prazosin and celexa Encourage individual, group, and milieu therapy. Continue q-15 minute checks for safety. Recommend sober living treatment at the highest level of care, to which the patient is willing to commit. Involuntary Hold Information 96 Hour Hold: 96 Hour Involuntary Admission: No 21 Day Hold: 21 Day Involuntary Hold: No Attestations NPU Medical Necessity Statement*: Inpatient hospitalization is medically necessary, and the clinically appropriate intervention at this time. We will monitor medication and make adjustments as indicated. Plan for return to [facility] on Thursday. Coding Level of Care Code Acute Building Construction Foreman for Opal Lara
[2020-01-20] MEDS: trazodone 50 mg Tablet PO (21:22)
[2020-01-20] MEDS: hyDROXYzine 25 mg Capsule 50 MG PO (21:22)
[2020-01-20] MEDS: prazosin 1 mg Capsule 2 MG PO (21:22)
[2020-01-20 21:49] VITALS: BP 114/64; PULSE 68; RESP 18; TEMP 37.3; O2SAT 95
[2020-01-21 06:00] VITALS: BP 111/65; PULSE 65; RESP 20; TEMP 37.1; O2SAT 97
[2020-01-21] MEDS: mirtazapine 15 mg Tablet PO (09:19)
[2020-01-21] MEDS: citalopram 20 mg Tablet 30 MG PO (09:19)
[2020-01-21] MEDS: naltrexone hcl 50 mg Tablet PO (09:19)
[2020-01-21] MEDS: nicotine 21 mg Patch 1 PATCH TRANSDERMA (09:21)
--- NOTE | 2020-01-21 11:42 | P.PN_ITS ---
Subjective NPU Subjective: Interval history: Jeremy presented today endorsing that he is somewhat frustrated because he feels like he should have been able to leave. We identified the fact that he had needed to make some changes and be able to be redirected, which was not the case when he presented on his first day. He acknowledged that this is true but reports that he feels at this point that being here is not as productive as he feels like it should be. He was able to be redirected though and we discussed him focusing on being able to leave here the first thing on Thursday. He was endorsing that he appreciated that this sign writer hand assisted him in being able to get something to drink outside of the water and milk through getting the vending machine restocked. Otherwise, he denied any major issues. He reported that he is eating better and sleeping fine. We discussed the risks, benefits, and alternatives of increasing his Prazosin and he understood and agreed to proceed as is documented in this note. He had noted earlier that his nightmares and sleep issues with post-traumatic stress disorder were having some residual issues and we discussed increasing that medication. Mental Status Exam MSE Comments: This is a slender, white male, with limited dress, grooming, and eye contact. with no teeth with clear atrophy from having the teeth gone for some time. No abnormal movements. More cooperative with exam in less distress. Speech was normal rate and volume. Mood described as alright; affect less irritable. Thought process, organized. Thought content: patient denied any suicidal or homicidal ideation, there were no delusions reported or noted, patient denied any auditory or visual hallucinations. Attention, concentration, and memory appear intact but were not formally tested. He is alert and oriented times three. Insight and judgment are improving. Impulse control limited. Vitals/I&O/Wt Last Vital Signs Temp 98.8 F 01/21/20 06:00 Pulse 65 01/21/20 06:00 Resp 20 H 01/21/20 06:00 BP 115/65 01/21/20 06:00 Pulse Ox 97 01/21/20 06:00 Data NPU : 01/17/20 18:40 01/17/20 18:40 A&P Additional A&P Information (1) Suicidal ideation: (2) Homicidal ideation: (3) Anxiety: (4) Insomnia: (5) Amphetamine addiction: (6) Mood disorder: (7) Alcohol abuse with alcohol-induced mood disorder: This is a 29 year old, white male, with methamphetamine use disorder, severe, post-traumatic stress disorder, antisocial personality disorder, depressive disorder, unspecified, anxiety disorder, unspecified, who presents reporting that he feels ready to return to [place]. Continue current medication. Increase in prazosin Encourage individual, group, and milieu therapy. Continue q-15 minute checks for safety. Return [facility] thursday. Involuntary Hold Information 96 Hour Hold: 96 Hour Involuntary Admission: No 21 Day Hold: 21 Day Involuntary Hold: No Attestations NPU Medical Necessity Statement*: Inpatient hospitalization is medically necessary, and the clinically appropriate intervention at this time. We will monitor medication and make adjustments as indicated. Plan for return to [facility] on Thursday morning. Coding Level of Care Code Acute Panel Monitor for Opal Lara
[2020-01-21 14:00] VITALS: BP 121/68; PULSE 93; RESP 18; TEMP 36.5
[2020-01-21] MEDS: trazodone 50 mg Tablet PO (20:46)
[2020-01-21] MEDS: hyDROXYzine 25 mg Capsule 50 MG PO (20:46)
[2020-01-21] MEDS: prazosin 1 mg Capsule 3 MG PO (20:46)
[2020-01-21 22:00] VITALS: BP 110/70; PULSE 76; RESP 20; TEMP 36.8; O2SAT 96
[2020-01-22 06:00] VITALS: BP 101/59; PULSE 57; RESP 17; TEMP 37.1; O2SAT 94
[2020-01-22] MEDS: citalopram 20 mg Tablet 30 MG PO (07:48)
[2020-01-22] MEDS: mirtazapine 15 mg Tablet PO (07:48)
[2020-01-22] MEDS: naltrexone hcl 50 mg Tablet PO (07:48)
[2020-01-22 14:00] VITALS: BP 104/64; PULSE 72; RESP 20; TEMP 37; O2SAT 96
--- NOTE | 2020-01-22 16:42 | P.PN_ITS ---
Subjective NPU Subjective: Interval history: Jeremy presented today endorsing that he is looking forward to leaving tomorrow, very focused on what time that would be. He wanted to know what time that he would be leaving, and we discussed the fact that it was outside of the dos santos of this financial underwriter and the unit to force them to pick him up at anytime and he started talking about wondering why he could not just walk as soon as he was awake because they let him walk other places. We discussed the fact that it was just liability issues and that we understood that he was fine with independent functioning, but these are just policies that many places have. We were made aware that there was a 96-hour hold that was going to be served that had been created, but just had not been served yet. He was advised that it would not change the trajectory of our decision, but that they have to perform the official tasks given that it was signed by the wiring mechanic. He endorsed looking forward to tomorrow and denied any other issues. Mental Status Exam MSE Comments: This is a slender, white male, with improved dress, grooming, and eye contact. with no teeth with clear atrophy from having the teeth gone for some time. No abnormal movements. More cooperative with exam in no acute distress. Speech was normal rate and volume. Mood described as anxious to get out of here; affect less irritable. Thought process, organized. Thought content: patient denied any suicidal or homicidal ideation, there were no delusions reported or noted, patient denied any auditory or visual hallucinations. Attention, concentration, and memory appear intact but were not formally tested. He is alert and oriented times three. Insight and judgment are improving. Impulse control improving. Vitals/I&O/Wt Last Vital Signs Temp 98.6 F 01/22/20 14:00 Pulse 72 01/22/20 14:00 Resp 20 H 01/22/20 14:00 BP 104/64 01/22/20 14:00 Pulse Ox 96 01/22/20 14:00 Weight last 48 hrs Weight 85.185 kg Data NPU : 01/17/20 18:40 01/17/20 18:40 A&P Additional A&P Information (1) Suicidal ideation: (2) Homicidal ideation: (3) Anxiety: (4) Insomnia: (5) Amphetamine addiction: (6) Mood disorder: (7) Alcohol abuse with alcohol-induced mood disorder: This is a 29 year old, white male, with methamphetamine use disorder, severe, post-traumatic stress disorder, antisocial personality disorder, depressive disorder, unspecified, anxiety disorder, unspecified, who presents reporting that he feels ready to return to [facility]. Continue current medication. Increase in prazosin Encourage individual, group, and milieu therapy. Continue q-15 minute checks for safety. [facility] tomorrow. Involuntary Hold Information 96 Hour Hold: 96 Hour Involuntary Admission: No 21 Day Hold: 21 Day Involuntary Hold: No Attestations NPU Medical Necessity Statement*: Inpatient hospitalization is medically necessary, and the clinically appropriate intervention at this time. We will monitor medication and make adjustments as indicated. Plan for return to [facility] tomorrow morning. Coding Level of Care Code Acute Metalworking Specialist for Opal Lara
[2020-01-22] MEDS: hyDROXYzine 25 mg Capsule 50 MG PO (20:18)
[2020-01-22] MEDS: prazosin 1 mg Capsule 3 MG PO (20:19)
[2020-01-22] MEDS: trazodone 50 mg Tablet PO (20:19)
--- NOTE | 2020-01-22 20:50 | PC.NURSE ---
pt given scheduled prazosin and PRN nicorette, trazodone, and vistaril per request.
[2020-01-22 21:57] VITALS: BP 138/81; PULSE 70; RESP 18; TEMP 36.6; O2SAT 98
[2020-01-23 06:00] VITALS: BP 102/63; PULSE 62; RESP 17; TEMP 36.9; O2SAT 99
[2020-01-23] MEDS: citalopram 20 mg Tablet 40 MG PO (08:55)
[2020-01-23] MEDS: naltrexone hcl 50 mg Tablet PO (08:55)
[2020-01-23] MEDS: mirtazapine 15 mg Tablet PO (08:55)
--- NOTE | 2020-01-23 09:49 | PM.NDC ---
Diagnoses at Discharge Discharge Diagnosis (1) Suicidal ideation: Status: Resolved (2) Homicidal ideation: Status: Resolved (3) Anxiety: Status: Chronic (4) Insomnia: Status: Resolved (5) Amphetamine addiction: Status: Resolved (6) Mood disorder: Status: Chronic (7) Alcohol abuse with alcohol-induced mood disorder: Status: Resolved Reason for Visit Reason for Visit: mhe Brief History: Jeremy Black is a 29 year old male Jeremy presented to the emergency room reporting suicidal ideation. He reportedly met a girl recently and moved to the town that she was in with a plan to make a really good relationship, but he reports when he got there, it ended up being that he was just ?a dildo to her? and now he feels embarrassed. He reports he tried to kill himself a few days ago by hanging and then had a plan to overdose. He reports that he has been using methamphetamines, currently in the [facility]. He is also now connected with the [facility], but it was reported that he was not able to contract for safety. He was admitted to the neuropsychiatric unit for definitive treatment of those issues. This morning, the patient was very irritable during the interview, mostly annoyed that similar questions to past questions were being asked. He was angry that certain conclusions were not reached after initial questions and ultimately reported that he is at [facility] and they wanted him to be evaluated because how he was feeling, even though he felt he was not that big a risk to act on the thoughts; however they wanted him to come here and be evaluated. He reports that he would be willing to go back as soon as we say. He is annoyed at the fact that we identified what [facility] was asking of us ,which we wanted to do, which was to figure out if there was a way we could help him with how he was functioning. He reported a willingness to restart his medications, which he had been nonadherent to see if that initially would be of assistance. He was wondering how long he needed to be here, if he needed to be here for 96-hours and we explained to him that our hope would be that he would be here until he was able to manage himself in a way that would be consistent with how he needs to function at [facility] and also get a benefit from [employer]. An excerpt of his 2019 hospitalization is included below. He was hospitalized in August here as well, seen by Dr. Tompkins as he had been in 2019, however this year?s hospitalization he was really irritable and out of it from the methamphetamine and provided little information, so an earlier hospitalization is identified as he reports that it is an accurate depiction of his psychiatric history, and he denies substantive changes since then other than the fact that he is in [facility] and had this recent run-in with this girl. Hospital Course Hospital Course HD#2: nterval history: Jeremy presents today reporting that he is mad at the staff because they did not bring him juice. We discussed the fact that other than water and milk, juice is not always there, but if they have juice they certainly would let him have it. He complained that the water was horrible, the [place] water, and this is the worst of [place] water, and that he does not really like milk. I told him that normally we have the machine, on the unit, for people that want something with flavor outside of pop. I assured him that if it is empty that I would get to the bottom of why it was not staying full. He talked again about going back to [facility], and we discussed the fact that it had become our knowledge that they were talking to him about going to inpatient. He reports it was his idea to talk about going to inpatient and they had assured him that if he came over here and worked on issues, that he would have a place to come back to. I explained to him that I had not personally spoken to anyone over there and I am only going from conversations other members of the treatment team have had. We both agree it would be nice if the three of us could have a conversation so that he can know that we are not jerking him around, and we are all clear of what expectations are. Otherwise, he reports that he is eating okay and sleeping okay, and denied other significant issues. HD#5 This was the patient's first visit with this physician and though we have engaged in treatment multiple times before. Patient reported that he had resolution of his depressive symptoms and was no longer having suicidal or homicidal ideation. It was his plan to return to his original sober living facility, [facility]. We reviewed his medications and he confirmed that they have been helpful and without side effects. On a positive note, the patient was more amicable and optimistic than he has been on any of our previous encounters. Affidavits for his commitment had been placed prior to his admission 5 days ago. He was just placed on the 96-hour involuntary commitment late last night. At this time there is no indication that he is of imminent danger to self or others. Discharge Summary Patient responded to admission to the adult psychiatric unit with full participation in individual and group therapies as part of the unit protocol. He utilized 24-hour trained nursing services available. Involuntary Hold Information 96 Hour Hold: 96 Hour Involuntary Admission: No 21 Day Hold: 21 Day Involuntary Hold: No Mental Status Exam MSE Comments: This is a slender, white male, with limited dress, grooming, and eye contact. Absent with no teeth with clear atrophy from having the teeth gone for some time. No abnormal movements. More cooperative with exam in less distress. Speech was normal rate and volume. Mood described as euthymic and cooperative with plan to go back to [facility]; affect no longer irritable. Thought process, organized. Thought content: patient denied any suicidal or homicidal ideation, there were no delusions reported or noted, patient denied any auditory or visual hallucinations. Attention, concentration, and memory appear intact but were not formally tested. He is alert and oriented times three. Insight and judgment are limited, but improving. Impulse control limited. Cognition: Patient Appearance: Appropriate Level of Consciousness: Awake, Alert and Appropriate Patient Cognition Impaired: No Ability to Follow Directions: Good Patient Orientation (long list): Person, Place, Time and Name Comprehension Ability: No Impairment Hallucination Type: None Delusion Description: Not Present Thought Process: Appropriate Affect: Affect Description: Calm Behavior: Patient Behavior: Appropriate Speech Pattern: Appropriate and Clear Discharge Data Vitals: Last Vital Signs Temp 98.5 F 01/23/20 06:00 Pulse 62 01/23/20 06:00 Resp 17 01/23/20 06:00 BP 102/63 01/23/20 06:00 Pulse Ox 99 01/23/20 06:00 Discharge Plan Discharge Patient Disposition: Home Condition: Stable Prescriptions: New trazodone 50 mg Tablet 50 mg PO BEDTIME PRN (Reason: Sleep) Qty: 30 RF: 2 prazosin 1 mg Capsule 3 mg PO BEDTIME Qty: 30 RF: 2 citalopram 20 mg Tablet 40 mg PO DAILY Qty: 30 RF: 2 mirtazapine 15 mg Tablet 15 mg PO BEDTIME Qty: 30 RF: 2 hydroxyzine pamoate 25 mg Capsule 50 mg PO Q6H PRN (Reason: Anxiety) Qty: 30 RF: 2 Continued naltrexone 50 mg tablet 50 mg PO DAILY Qty: 30 RF: 2 Discontinued prazosin 2 mg capsule 2 mg PO .at bedtime RF: 0 citalopram 20 mg tablet 30 mg PO DAILY Qty: 30 RF: 1 mirtazapine [Remeron] 15 mg tablet 15 mg PO DAILY RF: 0 Discharge Orders: Discharge Order (Routine); Ordered 01/23/20 Ordered By: Leeroy Tompkins Referrals: Lawrence Cruz [Other] [facility] [Outside] (Continue with outpatient treatment) Halina Giang APRN [Nurse Practitioner] - 01/30/20 11:00 am Ac Garcia Jr, MD [Primary Care Provider] - Patient Instructions: Anxiety (DC) Discharge Attestations NPU Time Spent in Discharge Care*: greater than 30 min Status at Discharge: Cognitive status at discharge: cognitively intact, Behavioral status at discharge: cooperative, Coding Level of Care Code Acute Entry Level for [facility] Fwd Diagnoses Suicidal ideation R45.851 Homicidal ideation R45.850 Anxiety F41.9 Insomnia G47.00 Amphetamine addiction F15.20 Mood disorder F39 Alcohol abuse with alcohol-induced mood disorder F10.14
[2020-01-23 09:51] VITALS: BP 102/63; PULSE 62; RESP 17; TEMP 36.9; O2SAT 99
== END 2020-01-23 11:55 | disposition home or self-care (01) | DRG 897 ==
LOC: ER 19:36 → NP 19:49
PROVIDERS: Family Medicine; Physician Assistant; Admitting Provider Psychiatry & Neurology Psychiatry; PCP Family Medicine; Visit Provider Psychiatry & Neurology Psychiatry
DX: F15.229 Other stimulant dependence with intoxication, unspecified (principal); R45.851 Suicidal ideations; F10.14 Alcohol abuse with alcohol-induced mood disorder; F41.9 Anxiety disorder, unspecified; R45.850 Homicidal ideations; F51.02 Adjustment insomnia; F17.210 Nicotine dependence, cigarettes, uncomplicated
CPT/HCPCS: 12345; 36415; 80053; 80306; 80307; 81003; 85025; 99284

== ENCOUNTER 2020-02-13 09:23 | Emergency (ER) | payer SELFPAY ==
[2020-02-13 09:24] VITALS: BP 110/71; PULSE 82; RESP 16; TEMP 36.2; O2SAT 98; BMI 27.1
--- NOTE | 2020-02-13 09:31 | W.ED.FALL ---
HPI - Fall General: Chief Complaint: General Medical Stated Complaint: RIGHT RIB PAIN Time Seen by Provider: 02/13/20 09:25 Source: patient Mode of arrival: ambulatory Limitations: no limitations History of Present Illness: HPI Narrative: Patient is a 29-year-old male who presents to ED today with complaint of right rib pain and a possible broken nose. Patient tells me he was being stupid yesterday and accidentally fell off his porch landing onto his right side and states he struck his nose on the ground. Patient denies LOC. He does not complain of a headache, neck pain, back pain. Patient does not complain of shortness of breath or difficulty breathing. He reports several previous nasal fractures MD complaint: fall Onset (ago): hour(s) Fall from: standing Fall witnessed: yes, by bystander Place fall occurred: home Loss of consciousness: None Prolonged down time: no Symptoms prior to fall: none Context: tripped/slipped Location of injury: face and chest Associated symptoms-after fall: Reports no associated symptoms and chest pain (R rib pain); Denies abdominal pain, headache(s), hematuria, lightheadedness or neck pain Review of Systems Const: Denies: fever(s), chills, body aches or fatigue Eyes: Reports: photophobia, floaters and seeing flashes; Denies: change in vision or blurry vision ENMT: Reports: epistaxis (after injury; subsided now) and sinus pain (nasal pain) Card: Reports: chest pain (R rib pain); Denies: palpitations, irregular heart rhythm, edema, swelling of feet/ankles, lightheadedness, syncope, pre-syncope, dyspnea on exertion, orthopnea or leg pain with exertion Resp: Reports: pain on inspiration; Denies: dyspnea, productive cough, non-productive cough, change in phlegm color, hemoptysis or chest congestion GI: Denies: abdominal pain, nausea or vomiting : Denies: hematuria Musc: Denies: neck pain, back pain, extremity pain, extremity swelling, joint pain or joint swelling Neuro: Denies: headache(s), numbness in extremities, weakness in extremities or sensory changes PFS ED PFSH: Medical History (Updated 02/13/20 @ 10:13 by PAUL Lanier) Alcohol abuse with alcohol-induced mood disorder Alcohol abuse with alcohol-induced mood disorder Amphetamine addiction Methamphetamine abuse Nicotine dependence with current use TBI (traumatic brain injury) Social History Smoking and tobacco status: current every day smoker Current gender identity: Male Physical Exam Const: COMMON NORMALS: no acute distress, average body habitus, patient oriented x3, no limitations, healthy appearing, alert and well nourished ORIENTATION/CONSCIOUSNESS: Yes oriented to person, Yes oriented to place and Yes oriented to time HENMT: COMMON NORMALS: normocephalic, atraumatic, hearing grossly normal bilaterally, external ears normal, EAC's normal, TM's normal bilaterally, moist oral mucous membranes and oropharynx normal HEAD & SCALP: normal to inspection, normocephalic and atraumatic FACE & SINUS: normal facial exam NOSE: Other nasal findings present (TTP anterior nasal bone; appears to have chronic deformity; no septal hemat) EXTERNAL EAR: Yes external ears normal EXTERNAL AUDITORY CANAL: EAC's normal TYMPANIC MEMBRANE: TM's normal bilaterally Eye: COMMON NORMALS: Equal, round and reactive pupils present and EOMs intact bilaterally GENERAL EYE: appearance normal, both eyes and all related structures PUPIL: Yes Equal, round and reactive pupils present Neck/C-Spine: COMMON NORMALS: full ROM CERVICAL SPINE: Yes cervical ROM normal, No pain with cervical ROM and No Cervical spine tenderness Chest: COMMONS NORMALS: normal inspection of the chest OTHER: TTP R lateral ribs Resp: COMMON NORMALS: normal respiratory effort and clear to auscultation bilaterally AUSCULTATION: clear to auscultation bilaterally Cardio: COMMON NORMALS: regular rate and regular rhythm RATE: regular rate RHYTHM: regular rhythm GI: COMMON NORMALS: Normal to inspection, nondistended, normoactive bowel sounds present, Soft to palpation, non-tender, No hepatosplenomegaly present and no masses PALPATION: Yes Soft to palpation and Yes No hepatosplenomegaly present : COMMON NORMALS: Yes no CVA tenderness BLADDER/KIDNEY EXAM: Yes no CVA tenderness Back/Pelvis: COMMON NORMALS: no CVA tenderness Extremity: COMMON NORMALS: normal to inspection and full ROM GENERAL: Yes normal exam except as noted Neuro: JAMISON COMA SCALE: document GCS findings Jamison coma scale eye opening: Spontaneous Jamison coma scale verbal response: Orientated Jamison coma scale motor response: Obey commands [place] coma scale total score: 15 COMMON NORMALS: patient oriented x3, moves all extremities, no focal motor deficits and no sensory deficits noted SENSORIUM/ORIENTATION: Yes alert, Yes oriented to person, Yes oriented to place and Yes oriented to time Skin: COMMON NORMALS: no rashes or lesions noted GENERAL SKIN EXAM: no rashes or lesions noted Course Vital Signs: Vital signs: Vital Signs Temperature 97.2 F L 02/13/20 09:24 Pulse Rate 70 02/13/20 10:21 Respiratory Rate 16 02/13/20 10:21 Blood Pressure 109/75 02/13/20 10:21 Pulse Oximetry 98 02/13/20 10:21 MDM - Fall MDM Narrative: Medical decision making narrative: will have pt follow up with ENT regarding nasal fracture; no septal hematoma on exam; discussed rib fx care and following up with PCP; return to ED precautions given Imaging Data^: XR R ribs/chest: My impression: two non-displaced rib fxs noted Radiologist's impression: [place] [address] XRay Report Signed Patient: Jeremy Black Unit #: [id number] : 1990 Age/Sex: 29 / M ADM Date: 02/13/20 Loc: ER Room/Bed: Attending Dr: Ordering Provider/Ordering MD: Caridad Valverde Date of Service: 02/13/20 Procedure(s): XR ribs RT mn 3V w CXR1V 86589 Accession Number(s): [id number] Report Number: [id number] PROCEDURE INFORMATION: Exam: XR Right Ribs with PA Chest, 3 Views Exam date and time: 02/13/2020 9:53 AM Age: 29 years old Clinical indication: Pain and injury or trauma; Fall; Initial encounter; Rib area; Blunt trauma (contusions or hematomas); Chest wall pain; Right; Injury date: 02/12/20; Additional info: Fall/pain right lower rib TECHNIQUE: Imaging protocol: XR Right ribs 3 views with PA chest. COMPARISON: CR Chest 1 [place] [id number] 01/03/2019 12:16 PM FINDINGS: Lungs: No lung contusion. Pleural space: No pneumothorax, hemothorax, or pleural effusion. Heart/Mediastinum: The cardiac silhouette is not enlarged. The mediastinal contours are normal. Bones/joints: There are nondisplaced fractures of the lateral right 6th and 7th ribs. Prior anterior cervical fusion. Soft tissues: No subcutaneous emphysema. XR/XR ribs RT mn 3V w CXR1V [id number] IMPRESSION: 1. Nondisplaced right 6th and 7th rib fractures. 2. No pneumothorax or lung contusion. Dictated By: Antwon Hu Signed By: Antwon Hu Signed Date/Time: 02/13/20 1103 DD/ 1102 XR nasal bones: My impression: non-displaced nasal fracture; questionable chronicity as pt states he has fractured nose several times previously Radiologist's impression: [facility] [address] [place] [address] XRay Report Signed Patient: Jeremy Black Unit #: [id number] : 1990 Age/Sex: 29 / M ADM Date: 02/13/20 Loc: ER Room/Bed: Attending Dr: Ordering Provider/Ordering MD: Caridad Valverde Date of Service: 02/13/20 Procedure(s): XR nasal bones min 3V 62428 Accession Number(s): [id number] Report Number: [id number] PROCEDURE INFORMATION: Exam: XR Nasal Bones, Minimum of 3 Views, Complete Exam date and time: 02/13/2020 9:53 AM Age: 29 years old Clinical indication: Pain and injury or trauma; Fall; Initial encounter; Blunt trauma (contusions or hematomas); Nose pain; Injury date: 02/12/20; Additional info: Fall; Pain TECHNIQUE: Imaging protocol: XR of the nasal bones, minimum of 3 views. Complete exam. COMPARISON: No relevant prior studies available. FINDINGS: Orbits: No intraorbital emphysema. Sinuses: The visualized paranasal sinuses are aerated with no air-fluid levels. Bones/joints: There is a slightly depressed nasal bone fracture demonstrated on the lateral views. Anterior maxillary spine is intact. Soft tissues: No acute soft tissue abnormality. XR/XR nasal bones min 3V 56005 IMPRESSION: Slightly depressed nasal bone fracture. Dictated By: Antwon Hu Signed By: Antwon Hu Signed Date/Time: 02/13/20 1100 DD/ 1059 Discharge Plan Discharge Patient Disposition: Home Clinical Impression: Multiple fractures of ribs of right side Qualifiers: Encounter type: initial encounter Fracture type: closed Qualified Code(s): S22.41XA - Multiple fractures of ribs, right side, initial encounter for closed fracture Closed fracture nasal bone Qualifiers: Encounter type: initial encounter Qualified Code(s): S02.2XXA - Fracture of nasal bones, initial encounter for closed fracture Condition: Stable Prescriptions: New Tylenol-Codeine #3 300-30 mg tablet 1 tab PO Q6H PRN (Reason: pain) Qty: 15 RF: 0 diclofenac sodium 50 mg tablet,delayed release (DR/EC) 50 mg PO Q12H PRN (Reason: pain) Qty: 20 RF: 0 No Action trazodone 50 mg Tablet 50 mg PO BEDTIME PRN (Reason: Sleep) Qty: 30 RF: 2 prazosin 1 mg Capsule 3 mg PO BEDTIME Qty: 30 RF: 2 citalopram 20 mg Tablet 40 mg PO DAILY Qty: 30 RF: 2 mirtazapine 15 mg Tablet 15 mg PO BEDTIME Qty: 30 RF: 2 hydroxyzine pamoate 25 mg Capsule 50 mg PO Q6H PRN (Reason: Anxiety) Qty: 30 RF: 2 naltrexone 50 mg tablet 50 mg PO DAILY Qty: 30 RF: 2 Discharge Orders: Discharge Order (Routine); Ordered 02/13/20 Ordered By: Caridad Valverde Referrals: Guillermo Schaefer MD [Physician] - Ac Garcia Jr, MD [Primary Care Provider] - Patient Instructions: Nasal Fracture (ED), Rib Fracture (ED), Fractures - Rib Activity Restrictions/Additional Instructions: As discussed please follow-up with Dr. Schaefer/ENT for your nasal fracture. You may use the prescribed medication for the discomfort associated with your rib fractures and nasal fracture. Follow-up with your primary care provider in 2 weeks for reevaluation. Return to the emergency department for shortness of breath, cough, fevers. Stand Alone Forms: Work/School Release Discharge Date/Time: 02/13/20 10:21 Coding Level of Care Code ED Brewery Technician for Chg Fwd Exam Comprehensive
[2020-02-13 10:21] VITALS: BP 109/75; PULSE 70; RESP 16; O2SAT 98
--- NOTE | 2020-02-15 08:21 | DCPLANNER ---
teaching manager had message to schedule a follow up appointment for patient with Dr. Schaefer, ENT. teaching manager faxed patients information to the office of Dr. Schaefer. Clinic will call patient with appointment information.
--- NOTE | 2020-02-16 11:38 | DCPLANNER ---
Asmita from Dr. Sweeney office called heel caser and left a voicemail for heel caser stating that the clinic spoke with patient about follow up appointment. assessment manager was told that patient does not have insurance, and does not want to have a followup appointment due to financial reasons.
== END 2020-02-13 10:21 | disposition home or self-care (01) ==
PROVIDERS: Emergency Provider Physician Assistant; PCP Family Medicine
DX: S22.41XA Multiple fractures of ribs, right side, initial encounter for closed fracture (principal); S02.2XXA Fracture of nasal bones, initial encounter for closed fracture; W17.89XA Other fall from one level to another, initial encounter; F17.210 Nicotine dependence, cigarettes, uncomplicated
CPT/HCPCS: 12345; 70160; 71101; 99282

== ENCOUNTER 2020-03-07 18:58 | Inpatient (IN) | payer SELFPAY ==
[2020-03-07] VITALS (7 sets, daily range): BP systolic 98–125; BP diastolic 58–84; PULSE 70–91; RESP 14–18; TEMP 36.4–36.8; O2SAT 95–100; BMI 27.1
[2020-03-07 19:44] LABS: Basophils # 0.1 10^3/uL (0.0-0.1); Basophils % 0.8 %; Eosinophils # 0.4 10^3/uL (0.0-0.8); Eosinophils % 5.7 %; Hematocrit 45.3 % (42.0-52.0); Hemoglobin 14.2 g/dL (11.7-16.6); Lymphocytes # 2.2 10^3/uL (0.8-4.8); Lymphocytes % 30.2 %; Mean Corpuscular HGB Conc 31.3 g/dL (30.0-36.0); Mean Corpuscular Hemoglobin 27.5 pg (28.0-34.0); Mean Corpuscular Volume 87.6 fL (80-94); Mean Platelet Volume 10.2 fL (7.4-10.4); Monocytes # 0.5 10^3/uL (0.2-0.9); Monocytes % 6.7 %; Neutrophils # 4.03 10^3/uL (1.8-7.7); Neutrophils % 56.3 %; Nucleated Red Blood Cells % 0 %; Platelet Count 310 10^3/cmm (130-400); Red Blood Count 5.17 10^6/uL (4.1-5.3); Red Cell Distribution Width 12.1 % (12.1-15.1); White Blood Count 7.2 10^3/uL (4.0-10.0)
[2020-03-07 19:59] LABS: Alanine Aminotransferase 11 U/L (0-41); Albumin Level 4.3 g/dL (3.5-5.2); Alkaline Phosphatase 76 IU/L (40-130); Anion Gap 11.2 (5-19); Aspartate Amino Transferase 13 U/L (0-40); Blood Urea Nitrogen 5 mg/dL (6-20); Calcium 8.7 mg/dL (8.5-10.5); Carbon Dioxide 27 mmol/L (22-29); Chloride 104 mmol/L (98-107); Globulin 2.5 g/dL (1.3-4.6); Glomerular Filtration Rate 131.5 mL/min (90-130); Glucose 112 mg/dL (65-115); Osmolality Calculated 284 mOsm/kg (285-295); Potassium 4.2 mmol/L (3.5-5.1); Sodium 138 mmol/L (136-145); Total Bilirubin 0.4 mg/dL (0.15-1.2); Total Protein 6.8 g/dL (6.6-8.7)
[2020-03-07 20:03] LABS: Acetaminophen < 5.0 ug/mL (10-30); Alcohol Level < 10 mg/dL (0-10); Salicylate < 0.3 mg/dL (3-10)
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
--- NOTE | 2020-03-07 20:25 | PC.NURSE ---
Physician asked patients expectations, pt responded I just want in the psych unit , physician stated are you homicidal or suicidal. Patient stated no . Physician told pt that NPU was not a detox and pt stated do whatever you need to get me in. Yes I'm suicidal yes I'm homicidal. You all can change all your stuff to 'Yes' . Pt stated tell your doctor if he dont get me in Im going to do a big enough shot of heroine that I dont wake up.
--- NOTE | 2020-03-07 20:33 | ED_ITS ---
HPI - Psych General: Chief Complaint: Psychiatric Symptoms Stated Complaint: Wants Detox Time Seen by Provider: 03/07/20 20:15 Source: patient Mode of arrival: ambulatory Limitations: no limitations History of Present Illness: HPI Narrative: 29-year-old male who is a known heroin and meth user. He states he has been using heroin and meth and is feeling depressed and wants detox. Patient states that he is suicidal states he will overdose on heroin. He denies any recent attempts. Patient originally in triage adamantly denied being suicidal or homicidal but he claims he was suicidal to me when I informed him we do not do detox. Patient has no signs of withdrawal at this time. He is fidgety. Associated symptoms: Reports depression Review of Systems Const: Denies: fever(s), chills, body aches or change in appetite Eyes: Denies: blurry vision or eye discomfort ENMT: Denies: throat pain or dental pain Card: Denies: chest pain Resp: Denies: dyspnea GI: Denies: abdominal pain, nausea, vomiting or diarrhea : Denies: dysuria Musc: Denies: neck pain or back pain Skin/Breast: Denies: rash Neuro: Denies: headache(s) Psych: Reports: depression and irritability Danial/Lymph: Denies: easy bruising All/Imm: Denies: urticaria PFSH ED PFSH: Medical History Alcohol abuse with alcohol-induced mood disorder Alcohol abuse with alcohol-induced mood disorder Amphetamine addiction Methamphetamine abuse Nicotine dependence with current use TBI (traumatic brain injury) Social History Smoking and tobacco status: current every day smoker Current gender identity: Male Physical Exam Const: COMMON NORMALS: no acute distress, patient oriented x3 and healthy appearing HENMT: COMMON NORMALS: normocephalic and atraumatic HEAD & SCALP: normocephalic and atraumatic Eye: COMMON NORMALS: Equal, round and reactive pupils present and EOMs intact bilaterally PUPIL: Yes Equal, round and reactive pupils present Neck/C-Spine: COMMON NORMALS: full ROM and supple Chest: COMMONS NORMALS: normal inspection of the chest and normal palpation of entire chest wall Resp: COMMON NORMALS: normal respiratory effort, No retractions, No use of accessory muscles and clear to auscultation bilaterally AUSCULTATION: clear to auscultation bilaterally Cardio: COMMON NORMALS: regular rate, regular rhythm and No murmurs present (Cardio) RATE: regular rate RHYTHM: regular rhythm GI: COMMON NORMALS: Normal to inspection, nondistended, normoactive bowel sounds present, Soft to palpation, non-tender and no masses PALPATION: Yes Soft to palpation Extremity: COMMON NORMALS: normal to inspection and full ROM Neuro: COMMON NORMALS: patient oriented x3, moves all extremities and no focal motor deficits Psych: COMMON NORMALS: mental status grossly normal ATTITUDE: Yes agitated Skin: COMMON NORMALS: no rashes or lesions noted and no wounds GENERAL SKIN EXAM: no rashes or lesions noted MDM - Psych MDM Narrative: Medical decision making narrative: Jeremy presents here with d rug abuse. Patient is also suicidal. Patient medically cleared and voluntarily wants to be admitted. I Dr. Miramontes speak to patient will admit for observation. Patient stable on the ER and shows no signs of active withdrawals. Lab Data: Labs: Lab Results 03/07/20 03/07/20 03/07/20 Range/Units 19:30 19:30 20:25 WBC 7.2 (4.0-10.0) 10^3/ uL RBC 5.17 (4.1-5.3) 10^6/u L Hgb 14.2 (11.7-16.6) g/dL Hct 45.3 (42.0-52.0) % MCV 87.6 (80-94) fL MCH 27.5 L (28.0-34.0) pg MCHC 31.3 (30.0-36.0) g/dL RDW 12.1 (12.1-15.1) % Plt Count 310 (130-400) 10^3/c mm MPV 10.2 (7.4-10.4) fL Neut % (Auto) 56.3 % Lymph % (Auto) 30.2 % [place] % (Auto) 6.7 % Eos % (Auto) 5.7 % Baso % (Auto) 0.8 % Neut # (Auto) 4.03 (1.8-7.7) 10^3/u L Lymph # (Auto) 2.2 (0.8-4.8) 10^3/u L [place] # (Auto) 0.5 (0.2-0.9) 10^3/u L Eos # (Auto) 0.4 (0.0-0.8) 10^3/u L Baso # (Auto) 0.1 (0.0-0.1) 10^3/u L Nucleated RBC % (a uto) 0 % Nucleated RBCs # 0.0 /100WBC Sodium 138 (136-145) mmol/L Potassium 4.2 (3.5-5.1) mmol/L Chloride 104 (98-107) mmol/L Carbon Dioxide 27 (22-29) mmol/L Anion Gap 11.2 (5-19) BUN 5 L (6-20) mg/dL Creatinine 0.7 (0.7-1.2) mg/dL GFR Calculation 131.5 H (90-130) mL/min Glucose 112 (65-115) mg/dL Calculated Osmolal ity 284 L (285-295) mOsm/k g Calcium 8.7 (8.5-10.5) mg/dL Total Bilirubin 0.4 (0.15-1.2) mg/dL AST 13 (0-40) U/L ALT 11 (0-41) U/L Alkaline Phosphata se 76 (40-130) IU/L Total Protein 6.8 (6.6-8.7) g/dL Albumin 4.3 (3.5-5.2) g/dL Globulin 2.5 (1.3-4.6) g/dL Salicylates < 0.3 L (3-10) mg/dL Urine Opiates Scre en Negative (Negative) ng/mL Acetaminophen < 5.0 L (10-30) ug/mL Ur Barbiturates Sc reen Negative (Negative) ng/mL Ur Phencyclidine S crn Negative (Negative) ng/mL Ur Amphetamines Sc reen Positive H (Negative) ng/mL U Benzodiazepines Scrn Negative (Negative) ng/mL Urine Cocaine Scre en Negative (Negative) ng/mL U Marijuana (THC) Screen Positive H (Negative) ng/mL Ethyl Alcohol < 10 (0-10) mg/dL Discharge Plan Discharge Prescriptions: No Action trazodone 50 mg Tablet 50 mg PO BEDTIME PRN (Reason: Sleep) Qty: 30 RF: 2 prazosin 1 mg Capsule 3 mg PO BEDTIME Qty: 30 RF: 2 citalopram 20 mg Tablet 40 mg PO DAILY Qty: 30 RF: 2 mirtazapine 15 mg Tablet 15 mg PO BEDTIME Qty: 30 RF: 2 hydroxyzine pamoate 25 mg Capsule 50 mg PO Q6H PRN (Reason: Anxiety) Qty: 30 RF: 2 naltrexone 50 mg tablet 50 mg PO DAILY Qty: 30 RF: 2 acetaminophen-codeine [Tylenol-Codeine #3] 300-30 mg tablet 1 tab PO Q6H PRN (Reason: pain) Qty: 15 RF: 0 diclofenac sodium 50 mg tablet,delayed release (DR/EC) 50 mg PO Q12H PRN (Reason: pain) Qty: 20 RF: 0 Coding Level of Care Code ED 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
[2020-03-07 20:44] LABS: Amphetamines Screen Urine Positive (Negative); Barbiturates Screen Urine Negative (Negative); Benzodiazepines Screen Urine Negative (Negative); Cocaine Screen Urine Negative (Negative); Opiate Screen Urine Negative (Negative); PCP Screen Urine Negative (Negative); THC Screen Urine Positive (Negative)
--- NOTE | 2020-03-07 21:46 | PC.NURSE ---
Addendum entered by Holly Davis RN 03/07/20 21:52: All questions answered, security called for transport Original Note: Report called to NPU by Holly SMYTH BSN
[2020-03-07] MEDS: hyDROXYzine 25 mg Capsule 50 MG PO (22:51)
[2020-03-07] MEDS: trazodone 50 mg Tablet PO (22:51)
[2020-03-08 06:00] VITALS: BP 114/73; PULSE 68; RESP 15; TEMP 36.6; O2SAT 94
[2020-03-08] MEDS: citalopram 20 mg Tablet 40 MG PO (08:36)
[2020-03-08] MEDS: naltrexone hcl 50 mg Tablet PO (08:36)
[2020-03-08 14:00] VITALS: BP 116/74; PULSE 60; RESP 19; TEMP 37.3; O2SAT 96
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
[2020-03-08] MEDS: hyDROXYzine 25 mg Capsule 50 MG PO (21:15)
[2020-03-08] MEDS: trazodone 50 mg Tablet PO (21:15)
[2020-03-08] MEDS: mirtazapine 15 mg Tablet PO (21:17)
[2020-03-08] MEDS: prazosin 1 mg Capsule 3 MG PO (21:17)
[2020-03-08 22:00] VITALS: BP 142/79; PULSE 62; RESP 19; TEMP 37.2; O2SAT 96
--- NOTE | 2020-03-09 05:20 | PC.NURSE ---
PRNS GIVEN VISTERIL 50MG PO FOR ANXIETY. RESULT IS A PATIENT WHO IS NO LONGER ANXIOUS TRAZODONE 50MG PO FOR SLEEP. RESULT IS A PATIENT THAT IS SLEEPING SOUNDLY
[2020-03-09 06:00] VITALS: BP 111/69; PULSE 85; RESP 20; TEMP 37.2; O2SAT 97
[2020-03-09] MEDS: naltrexone hcl 50 mg Tablet PO (09:07)
[2020-03-09] MEDS: citalopram 20 mg Tablet 40 MG PO (09:07)
--- NOTE | 2020-03-09 11:58 | PM.NPN ---
Subjective NPU Subjective: Interval history: Jeremy presented today continuing to have lethargy likely from the withdrawal as well as the restarting of his medications. Social work team is working really hard to assist him and seeing if there are any possibilities of getting him into some kind of program. He continues to endorse feeling hopeless and that he has no resources to turn to. Discussion about the importance of him following through on things now so that when he needs something later that the resources might be that. As a major deterrent to him getting into any kind of rehabilitative treatment is his lack of insurance/Medicaid. He reports he is eating okay and sleeping a lot. Mental Status Exam MSE Comments: This is an overweight white male with limited dress, grooming and eye contact. No abnormal movements except for psychomotor retardation. Cooperative with exam in moderate distress. Speech was decreased rate and normal volume. Mood described as depressed affect irritable. Thought process organized. Thought content: Patient endorses suicidal but denied homicidal ideation, there were no delusions reported or noted, he denied any auditory or visual hallucinations. Attention and concentration were intact in memory appeared reliable but none were formally tested. He alert and oriented x3. Insight and judgment are fair. impulse control is impaired. Vitals/I&O/Wt Last Vital Signs Temp 98.6 F 03/09/20 20:56 Pulse 74 03/09/20 20:56 Resp 18 03/09/20 20:56 BP 129/73 03/09/20 20:56 Pulse Ox 95 03/09/20 20:56 Data NPU : 03/07/20 19:30 03/07/20 19:30 A&P Additional A&P Information (1) Methamphetamine abuse: (2) Alcohol abuse with alcohol-induced mood disorder: (3) Caffeine abuse, continuous: (4) Anxiety: (5) Suicidal ideation: (6) Opioid use disorder: (7) Opioid withdrawal: (8) Withdrawal from methamphetamine: (9) PTSD (post-traumatic stress disorder): (10) Major depressive disorder, recurrent: (11) Malingering: This is a 29 year old, white male, with methamphetamine use disorder, severe, post-traumatic stress disorder, antisocial personality disorder, depressive disorder, unspecified, anxiety disorder, unspecified, who presents reporting that he feels ready to return to [facility]. Continue current medication. Encourage individual, group, and milieu therapy. Continue q-15 minute checks for safety. Encourage sober living follow-up at the highest level of care to which he is willing to commit. Involuntary Hold Information 96 Hour Hold: 96 Hour Involuntary Admission: No 21 Day Hold: 21 Day Involuntary Hold: No Attestations NPU Medical Necessity Statement*: Inpatient hospitalization is medically necessary, and the clinically appropriate intervention at this time. We will monitor medication and make adjustments as indicated. Likely length of stay 1-3 days. Coding Level of Care Code Acute Service Provider for Opal Lara
[2020-03-09 14:00] VITALS: BP 117/72; PULSE 70; RESP 18; TEMP 37.3; O2SAT 97
[2020-03-09] MEDS: hyDROXYzine 25 mg Capsule 50 MG PO (20:45)
[2020-03-09] MEDS: prazosin 1 mg Capsule 3 MG PO (20:45)
[2020-03-09] MEDS: trazodone 50 mg Tablet PO (20:45)
[2020-03-09] MEDS: mirtazapine 15 mg Tablet PO (20:45)
[2020-03-09 20:56] VITALS: BP 129/73; PULSE 74; RESP 18; TEMP 37; O2SAT 95
[2020-03-10 06:00] VITALS: BP 112/78; PULSE 64; RESP 17; TEMP 37.3; O2SAT 98
[2020-03-10] MEDS: citalopram 20 mg Tablet 40 MG PO (08:50)
[2020-03-10] MEDS: naltrexone hcl 50 mg Tablet PO (08:50)
--- NOTE | 2020-03-10 10:59 | P.PN_ITS ---
Subjective NPU Subjective: Interval history: Jeremy presented today reporting that he is doing okay. He is sleeping quite a bit but adjusting to his medications being restarted. Again tried to talk to him about the importance of his follow- through and how not connecting with Medicaid and past hospitalizations has led to the limitations we are facing with in trying to find a possible rehab him. Trying to get him to take accountability for this being a situation of his making if he is actually serious about getting well, and that we can only do so much. Told him that we would work with the treatment team first thing Thursday morning but if there is not any hope in sight, then we will have to talk about discharge. He has a [employer] [facility] application on his floor and reports that the reason why it has not been filled out is because no one has given him a utensil appropriate to fill it out with. He reports that he is eating fine and sleeping more because he is trying not to get frustrated about the situation. Mental Status Exam MSE Comments: This is an overweight white male with limited dress, grooming and eye contact. No abnormal movements except for psychomotor retardation. Mostly cooperative with exam in mild to moderate distress. Speech was decreased rate and volume. Mood described as frustrated affect irritable. Thought process organized. Thought content: Patient endorses suicidal but denied homicidal ideation, there were no delusions reported or noted, he denied any auditory or visual hallucinations. Attention and concentration were intact in memory appeared reliable but none were formally tested. He alert and oriented x3. Insight and judgment are limited. impulse control is impaired. Vitals/I&O/Wt Last Vital Signs Temp 99.2 F 03/10/20 06:00 Pulse 64 03/10/20 06:00 Resp 17 03/10/20 06:00 BP 112/78 03/10/20 06:00 Pulse Ox 98 03/10/20 06:00 Data NPU : 03/07/20 19:30 03/07/20 19:30 A&P Additional A&P Information (1) Methamphetamine abuse: (2) Alcohol abuse with alcohol-induced mood disorder: (3) Caffeine abuse, continuous: (4) Anxiety: (5) Suicidal ideation: (6) Opioid use disorder: (7) Opioid withdrawal: (8) Withdrawal from methamphetamine: (9) PTSD (post-traumatic stress disorder): (10) Major depressive disorder, recurrent: (11) Malingering: This is a 29 year old, white male, with methamphetamine use disorder, severe, post-traumatic stress disorder, antisocial personality disorder, depressive disorder, unspecified, anxiety disorder, unspecified, who presents reporting t hat he feels ready to return to [facility]. Continue current medication. Encourage individual, group, and milieu therapy. Continue q-15 minute checks for safety. Encourage sober living follow-up at the highest level of care to which he is willing to commit. Involuntary Hold Information 96 Hour Hold: 96 Hour Involuntary Admission: No 21 Day Hold: 21 Day Involuntary Hold: No Attestations NPU Medical Necessity Statement*: Inpatient hospitalization is medically necessary, and the clinically appropriate intervention at this time. We will monitor medication and make adjustments as indicated. Likely length of stay 2- 3 days. Coding Level of Care Code Acute Splicing Supervisor for Opal Lara
[2020-03-10 14:00] VITALS: BP 124/73; PULSE 73; RESP 18; TEMP 36.9; O2SAT 99
[2020-03-10 20:54] VITALS: BP 131/81; PULSE 81; RESP 13; TEMP 37.1; O2SAT 96
[2020-03-10] MEDS: mirtazapine 15 mg Tablet PO (21:10)
[2020-03-10] MEDS: prazosin 1 mg Capsule 3 MG PO (21:10)
--- NOTE | 2020-03-11 00:57 | PC.NURSE ---
Follow up trazodone/visteril Patient is sleeping peacefully in his room without any s/s distress at this time
[2020-03-11 06:00] VITALS: BP 121/80; PULSE 87; RESP 19; TEMP 36.7; O2SAT 95
[2020-03-11] MEDS: citalopram 20 mg Tablet 40 MG PO (08:50)
[2020-03-11] MEDS: naltrexone hcl 50 mg Tablet PO (08:50)
--- NOTE | 2020-03-11 12:23 | P.PN_ITS ---
Subjective NPU Subjective: Interval history: Jeremy presents today continuing to be irritable and very significant often looking up. He has not filled out his [employer] mission spreadsheet that I can tell. We discussed the fact that the treatment team will convene and we would work on finding him a rehab if it was going to be possible. He reports that he did use significant drugs during this relapse. We discussed the possibility that he may have to be discharged if we do not have any thing for sure from a standpoint of rehab beds even though [facility] is open to him returning. Mental Status Exam MSE Comments: This is an overweight white male with limited dress, grooming and eye contact. No abnormal movements except for psychomotor retardation. Mostly cooperative with exam in mild to moderate distress. Speech was decreased rate and volume. Mood described as upset affect irritable. Thought process organized. Thought content: Patient endorses suicidal but denied homicidal ideation, there were no delusions reported or noted, he denied any auditory or visual hallucinations. Attention and concentration were intact in memory appeared reliable but none were formally tested. He alert and oriented x3. Insight and judgment are limited. impulse control is impaired. Vitals/I&O/Wt Last Vital Signs Temp 98.0 F 03/11/20 06:00 Pulse 87 03/11/20 06:00 Resp 19 H 03/11/20 06:00 BP 121/80 03/11/20 06:00 Pulse Ox 95 03/11/20 06:00 Weight last 48 hrs Weight 73.391 kg Data NPU : 03/07/20 19:30 03/07/20 19:30 A&P Additional A&P Information (1) Methamphetamine abuse: (2) Alcohol abuse with alcohol-induced mood disorder: (3) Caffeine abuse, continuous: (4) Anxiety: (5) Suicidal ideation: (6) Opioid use disorder: (7) Opioid withdrawal: (8) Withdrawal from methamphetamine: (9) PTSD (post-traumatic stress disorder): (10) Major depressive disorder, recurrent: (11) Malingering: This is a 29 year old, white male, with methamphetamine use disorder, severe, post-traumatic stress disorder, antisocial personality disorder, depressive disorder, unspecified, anxiety disorder, unspecified, who presents reporting that he feels ready to return to [facility]. Continue current medication. Encourage individual, group, and milieu therapy. Continue q-15 minute checks for safety. Encourage sober living follow-up at the highest level of care to which he is willing to commit. Involuntary Hold Information 96 Hour Hold: 96 Hour Involuntary Admission: No 21 Day Hold: 21 Day Involuntary Hold: No Attestations NPU Medical Necessity Statement*: Inpatient hospitalization is medically necessary, and the clinically appropriate intervention at this time. We will monitor medication and make adjustments as indicated. Likely length of stay 1- 3 days. Coding Level of Care Code Acute Pig Farm Manager for Opal Lara
[2020-03-11 14:00] VITALS: BP 134/75; PULSE 122; RESP 18; TEMP 37; O2SAT 98
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
[2020-03-11 21:01] VITALS: BP 107/73; PULSE 88; RESP 17; TEMP 36.8; O2SAT 97
[2020-03-11] MEDS: mirtazapine 15 mg Tablet PO (21:19)
[2020-03-11] MEDS: prazosin 1 mg Capsule 3 MG PO (21:19)
[2020-03-11] MEDS: hyDROXYzine 25 mg Capsule 50 MG PO (21:19)
[2020-03-11] MEDS: trazodone 50 mg Tablet PO (21:19)
[2020-03-12 06:00] VITALS: BP 100/66; PULSE 70; RESP 18; TEMP 36.7; O2SAT 96
[2020-03-12] MEDS: citalopram 20 mg Tablet 40 MG PO (07:42)
[2020-03-12] MEDS: naltrexone hcl 50 mg Tablet PO (07:42)
--- NOTE | 2020-03-12 07:53 | PC.RESP ---
Smoking Cessation information sent to patient.
[2020-03-12 10:05] VITALS: BP 100/66; PULSE 70; RESP 18; TEMP 36.7; O2SAT 96
[2020-03-12] MEDS: nicotine 2 mg Gum BUCCAL (15:39)
--- NOTE | 2020-03-12 15:56 | P.PN_ITS ---
Subjective NPU Subjective: Interval history: Jeremy presents today reporting that he is planning on going to an opening at [facility] on Thursday. Some of the other opportunities just did not come through and they did not have a bed immediately however his mother is saying she will allow him to stay with her for a couple of days while he is getting everything together to go to this sober living program. He precipitately adjusting to his medication and he is eating better and sleeping more normally. Mental Status Exam MSE Comments: This is an overweight white male with limited dress, grooming and eye contact. No abnormal movements except for psychomotor retardation. Mostly cooperative with exam in mild to moderate distress. Speech was normal rate and volume. Mood described as annoyed, affect irritable. Thought process organized. Thought content: Patient endorses suicidal but denied homicidal ideation, there were no delusions reported or noted, he denied any auditory or visual hallucinations. Attention and concentration were intact in memory appeared reliable but none were formally tested. He alert and oriented x3. Insight and judgment are limited but improving. impulse control is impaired, but improving. Vitals/I&O/Wt Last Vital Signs Temp 98.0 F 03/12/20 10:05 Pulse 70 03/12/20 10:05 Resp 18 03/12/20 10:05 BP 100/66 03/12/20 10:05 Pulse Ox 96 03/12/20 10:05 Weight last 48 hrs Weight 73.391 kg Data NPU : 03/07/20 19:30 03/07/20 19:30 A&P Additional A&P Information (1) Methamphetamine abuse: (2) Alcohol abuse with alcohol-induced mood disorder: (3) Caffeine abuse, continuous: (4) Anxiety: (5) Suicidal ideation: (6) Opioid use disorder: (7) Opioid withdrawal: (8) Withdrawal from methamphetamine: (9) PTSD (post-traumatic stress disorder): (10) Major depressive disorder, recurrent: (11) Malingering: This is a 29 year old, white male, with methamphetamine use disorder, severe, post-traumatic stress disorder, antisocial personality disorder, depressive dis order, unspecified, anxiety disorder, unspecified, who presents reporting that he feels ready to return to [facility]. Continue current medication. Encourage individual, group, and milieu therapy. Continue q-15 minute checks for safety. Encourage sober living follow-up at the highest level of care to which he is willing to commit. Involuntary Hold Information 96 Hour Hold: 96 Hour Involuntary Admission: No 21 Day Hold: 21 Day Involuntary Hold: No Attestations NPU Medical Necessity Statement*: Inpatient hospitalization is medically necessary, and the clinically appropriate intervention at this time. We will monitor medication and make adjustments as indicated. Tentative plan for discharge tomorrow. Coding Level of Care Code Acute Grated Cheese Maker for [facility]
[2020-03-12] MEDS: prazosin 1 mg Capsule 3 MG PO (20:44)
[2020-03-12] MEDS: trazodone 50 mg Tablet PO (20:44)
[2020-03-12] MEDS: mirtazapine 15 mg Tablet PO (20:44)
[2020-03-12] MEDS: hyDROXYzine 25 mg Capsule 50 MG PO (20:45)
[2020-03-12 21:59] VITALS: BP 97/62; PULSE 84; RESP 18; TEMP 36.7; O2SAT 97
--- NOTE | 2020-03-12 22:18 | NUR.SHIFT ---
ON ASSESSMENT-PATIENT HEART/LUNGS SOUNDS ARE CLEAR THROUGHOUT. ALL FOUR QUADRANTS OF BOWELS ARE ACTIVE. THIS PATIENT IS STRUGGLING WITH ADDICTION TO METH & HEROIN. HE EXPRESSED CONCERNS ABOUT HIS UPCOMING PLACEMENT IN THE [facility] [address] [place] [address] BECAUSE HE DOES NOT KNOW WHAT TO EXPECT WHEN HE GETS THERE. HE TALKED ABOUT BEING LONELY AND HIS INABILITY TO SEEK OUT FEMALE COMPANIONSHIP WITH A LADY WHO IS NOT USING HIM FOR THE DRUGS HE CAN SHARE WITH HER. HE CRIED HE TALKED ABOUT THE RELAPSES THAT HE HAS HAD AND FEELING HOPELESS TO FIGHT HIS ADDICTION ON HIS OWN. THE EXAMPLE THAT HE GAVE ME TONIGHT, WAS THAT HE FORGOT TO DRAW UP THE WATER FROM A SINK ONLY TO FIND OUT THAT THE SINK DIDN'T WORK. HE KNEW HE HAD HIT AN ALL TIME LOW WHEN HE WENT LOOKING IN TO THE TOILET FOR WATER TO WOK DOWN HIS HEROIN. HE FEARS GETTING A BLOOD DISEASE FROM SHARING DIRTY NEEDLES OR A BACTERIAL INFECTION FROM DRAWING WATER UP FROM A DIRTY MUD PUDDLE. TEARS FELL DOWN HIS FACE HE TALKED ABOUT HIS LIFE. HIS LAST TRIP TO [facility] HE WAS USING HEROIN/METH SIMULTANEOUSLY AND SAID THAT HE COULD NOT REACH THE SAME HIGH. HE SAYS THAT HIS BODY IS ACHING AND MENTALLY ALL HE CAN THINK ABOUT IS WHERE HE CAN GET ANOTHER HIT. HE ADMITS TO USING AND THAT HE KNOWS IT IS NOT GOOD FOR HIM BUT STATES THAT I CAN NOT STOP ON MY OWN IN THIS TOWN.
[2020-03-13 06:00] VITALS: BP 115/71; PULSE 65; RESP 16; TEMP 36.7; O2SAT 97
[2020-03-13] MEDS: citalopram 20 mg Tablet 40 MG PO (08:26)
[2020-03-13] MEDS: naltrexone hcl 50 mg Tablet PO (08:26)
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
[2020-03-13 11:05] VITALS: BP 115/71; PULSE 65; RESP 16; TEMP 36.7; O2SAT 97
[2020-03-13 11:08] VITALS: BP 115/71; PULSE 65; RESP 16; TEMP 36.7; O2SAT 97
== END 2020-03-13 11:46 | disposition home or self-care (01) | DRG 885 ==
LOC: ER 21:01 → NP 21:14
PROVIDERS: Emergency Medicine; Admitting Provider Psychiatry & Neurology Psychiatry; PCP Family Medicine; Visit Provider Psychiatry & Neurology Psychiatry
DX: F23 Brief psychotic disorder (principal); R45.851 Suicidal ideations; F15.20 Other stimulant dependence, uncomplicated; F11.23 Opioid dependence with withdrawal; F15.23 Other stimulant dependence with withdrawal; F10.229 Alcohol dependence with intoxication, unspecified; F43.11 Post-traumatic stress disorder, acute; Z76.5 Malingerer [conscious simulation]; F41.8 Other specified anxiety disorders; F17.210 Nicotine dependence, cigarettes, uncomplicated
CPT/HCPCS: 12345; 36415; 80053; 80306; 80307; 85025; 99284; G0378; Q3014